=== PATIENT | female | born 1940 | race Caucasian/White ===

== ENCOUNTER 2024-08-02 10:54 | Inpatient (IN) ==
--- NOTE | 2024-08-02 11:15 | Emergency Department Note ---
History of Present Illness General Chief Complaint: Tachycardia Stated Complaint: SOB, TACHYCARDIA/116 BPM Time Seen by Provider: 08/02/24 11:04 History of Present Illness Provider Complaint: chest pain Onset (ago): week(s) Onset (Weeks): 1 Duration: intermittent Onset: during rest Pain Location: substernal Pain Radiation: none Severity: moderate Maximum Pain Intensity: 7 Current Pain Intensity: 7 Quality: + tightness Relieved By: + nothing Exacerbated By: + nothing Context: + recent travel and + history of DVT/PE; no recent illness, no recent surgery or no trauma/injury Associated symptoms: + dyspnea and + palpitations; no nausea, no fever, no cough or no leg swelling Past Med/Surg History Problem List (Updated 08/02/24 @ 13:33 by Sal Velazco MD) Acute heart failure Atrial fibrillation with RVR Medical History No pertinent family history HTN (hypertension) Surgical History No pertinent past surgical history Social History Smoking Status: Never smoker Preferred Language: Albanian Feels Safe at Home: Yes Physical Exam Vital Signs Vital Signs - 24 hr 08/02/24 10:59 08/02/24 11:16 08/02/24 11:16 Temperature 36.6 C Temperature Source Temporal Artery Scan Pulse Rate 97 H Pulse Rate [Apical] 100 H Respiratory Rate 17 20 Respiratory Effort / Characteristics Non-Labored Spontaneous Respiratory Depth Normal Blood Pressure 114/77 Blood Pressure [Left Arm] 101/84 Blood Pressure Mean 89 Blood Pressure Mean [Left Arm] 89 Blood Pressure Position Sitting Pulse Oximetry 97 94 93 Oxygen Delivery Method Room Air Room Air Room Air Sepsis Recent Fever Within 48 Hours No Sepsis New/Unexplained Change in Mental Status No Sepsis Action Taken by Nursing No Action Required 08/02/24 11:16 08/02/24 12:25 Temperature Temperature Source Pulse Rate 112 H 97 H Pulse Rate [Apical] Respiratory Rate 19 Respiratory Effort / Characteristics Respiratory Depth Blood Pressure Blood Pressure [Left Arm] Blood Pressure Mean Blood Pressure Mean [Left Arm] Blood Pressure Position Pulse Oximetry 95 Oxygen Delivery Method Room Air Sepsis Recent Fever Within 48 Hours Sepsis New/Unexplained Change in Mental Status Sepsis Action Taken by Nursing Physical Exam GENERAL: oriented to person, place, and time. appears well-developed and well- nourished. HENT: Exam performed. - Head: Normocephalic and atraumatic. EYES: Conjunctivae and EOM are normal. Right eye exhibits no discharge. Left eye exhibits no discharge. No scleral icterus. NECK: Normal range of motion. Neck supple. No JVD present. CV: Tachycardic rate, irregular rhythm, normal heart sounds and intact distal pulses. There is no peripheral edema. Palpable radial pulses bue. PULM/CHEST: Effort normal and breath sounds normal. No respiratory distress. No stridor. no wheezes. no rales. ABD: The abdomen is soft. There is no tenderness. NEURO: Motor and sensation grossly intact. SKIN: Skin is warm and dry. He is not diaphoretic. PSYCH: normal mood and affect. Behavior is normal. Judgment and thought content normal. Course Course 1104: The patient was evaluated in room B10. A complete history and physical exam was performed Cardiac monitoring: An order was placed for continuous cardiac monitoring. The monitor shows a rate of 120-140 with atrial fibrilation rhythm interpreted by me Patient has no history of atrial fibrillation. Patient's blood pressure is in the low systolic 100s. Patient be started on Cardizem drip. 1335: Vital signs stable on Cardizem drip. Patient reports her chest pain and palpitations have improved with Cardizem drip. Labs are unremarkable. Imaging shows fluid overloaded. Patient treated with Lasix and will put on heparin drip as well. [facility] is aware and evaluate the patient for mission. Administered Medications Diltiazem HCl 125 mg/ Dextrose 125 mls @ 5 mls/hr IV .Q24H YOANNA; Protocol Stop: 09/01/24 11:14 Last Admin: 08/02/24 11:26 Dose: 5 mg/hr, 5 mls/hr Documented By: AVM Co-signed By: LAM Heparin Sodium/Dextrose (Heparin Sodium/Dextrose) 25,000 units in 500 mls @ 13 mls/hr IV .Q24H YOANNA; Protocol Stop: 09/01/24 13:29 Last Admin: 08/02/24 13:26 Dose: 650 units/hr, 13 mls/hr Documented By: AVM Co-signed By: PARRIS Discontinued Medications Aspirin (Aspirin Chew 324 Mg) 324 mg PO NOW STA Stop: 08/02/24 11:06 Last Admin: 08/02/24 11:18 Dose: 324 mg Documented By: SARAH Furosemide (Furosemide 40 Mg/4 Ml Vial) 40 mg IV ONE ONE Stop: 08/02/24 13:09 Last Admin: 08/02/24 13:28 Dose: 40 mg Documented By: SARAH Heparin Sodium (Porcine) (Heparin Sod (Porcine) 1000 Unit/Ml) 1 units IV NOW ONE Stop: 08/02/24 13:25 Last Admin: 08/02/24 13:26 Dose: 3,000 units Documented By: SARAH Co-signed By: PARRIS Heparin Sodium (Porcine) (Heparin Sod (Porcine) 1000 Unit/Ml) 3,000 units IV NOW ONE Stop: 08/02/24 13:31 Last Admin: 08/02/24 13:32 Dose: Not Given Documented By: SARAH Heparin Sodium/Dextrose (Heparin Iv Adult Wt-Based Low-Dose W/ Initial Bolus Protocol) 1 each IV NOW STA; Protocol Stop: 08/02/24 13:09 Last Admin: 08/02/24 13:26 Dose: Not Given Documented By: SARAH Ioversol (Optiray 320 125ml) 112 ml IV ONCE ONE Stop: 08/02/24 11:41 Last Admin: 08/02/24 11:41 Dose: 112 ml Documented By: MIKALA Miscellaneous (Stat Iv Infusion Titration Per Protocol) 1 each N/A NOW STA Stop: 08/02/24 11:14 Last Admin: 08/02/24 11:33 Dose: Not Given Documented By: SARAH Medical Decision Making Laboratory Data Attestation: I reviewed the patient's lab results. 08/02/24 11:26 08/02/24 11:26 Labs: Lab Results 08/02/24 Range/Units 11:26 WBC 7.84 (4.8-10.8) K/ul RBC 3.96 L (4.20-5.40) M/uL Hgb 12.3 (12.0-16.0) g/dl Hct 36.8 L (37.0-47.0) % MCV 92.9 (80.0-100.0) fL MCH 31.1 (25.0-34.0) pg MCHC 33.4 (32.0-36.0) g/dL RDW Std Deviation 43.6 (36.4-46.3) fL RDW Coeff of Jennifer 12.8 (11.5-14.5) % Plt Count 154 (130-400) K/uL MPV 12.5 H (9.4-12.4) fL Immature Gran % (Auto) 0.4 % Neut % (Auto) 67.9 % Lymph % (Auto) 22.6 % Evangeline % (Auto) 8.4 % Eos % (Auto) 0.3 % Baso % (Auto) 0.4 % Neut # (Auto) 5.33 (1.40-6.50) K/uL Lymph # (Auto) 1.77 (1.20-3.40) K/uL Evangeline # (Auto) 0.66 H (0.11-0.59) K/uL Eos # (Auto) 0.02 (0.00-0.50) K/uL Baso # (Auto) 0.03 (0.00-0.20) K/uL Immature Gran # (Auto) 0.03 (0.01-0.20) K/uL PT 10.7 (9.0-12.0) Seconds INR 1.0 (0.9-1.1) APTT 24 (21-31) Seconds PTT Ratio 0.9 Sodium 138 (136-145) mmol/L Potassium 4.7 (3.5-5.1) mmol/L Chloride 106 (98-107) mmol/L Carbon Dioxide 25 (21-32) mmol/L Anion Gap 7 (3-11) BUN 34 H (6-23) mg/dl Creatinine 1.20 (0.6-1.2) mg/dl Est Cr Clr Drug Dosing 28.4 ml/min eGFR 44.36 BUN/Creatinine Ratio 28.3 H (10-20) Glucose 204 H (70-99(Fasting)) mg/dl Calcium 9.5 (8.6-10.3) mg/dl Troponin I High Sens 5.5 (0-14) pg/ml Lipase 81 (11-82) U/L Imaging Data Chest x-ray: Attestation: I personally reviewed and interpreted this imaging study as follows: My impression: Chest x-ray negative. Airway clear. No pneumothorax. No consolidation. No cardiomegaly or cephalization.. No free air under the diaphragm. No fractures of the skeletal structures. Radiologist's impression: XR chest 1V portable CLINICAL HISTORY: Chest pain, nonspecific COMPARISON STUDY: No previous studies for comparison. FINDINGS: Left shoulder arthroplasty is partially imaged. There is no pneumothorax. Small bilateral pleural effusions are present. The heart is mildly enlarged. Interstitial thickening is noted. There is no consolidation to suggest pneumonia. IMPRESSION: Cardiomegaly with interstitial pulmonary edema and small bilateral pleural effusions. ACT 112: Negative or not required by law. Electronically signed by: Donovan Stafford M.D. 08/02/2024 12:10 PM Dictated: 08/02/24 120 Transcribed: 08/02/241208 CT scan - chest: Radiologist's impression: CT ANGIOGRAM OF THE CHEST CLINICAL HISTORY: Atypical chest pain. COMPARISON STUDY: Chest x-ray dated 08/02/2024. TECHNIQUE: Following the IV administration of 112 cc of Optiray 320, CT angiogram of the chest was performed from the upper abdomen to the thoracic inlet utilizing the pulmonary embolus protocol. Images are reviewed in the axial, sagittal, and coronal planes. 3-D MIPS images are created and assessed. IV contrast was administered without complication. A dose lowering technique was utilized adhering to the principles of ALARA. There is streak artifact from a left shoulder arthroplasty. CT DOSE: 547.93 mGy.cm FINDINGS: Thyroid: Imaged portions of the thyroid gland are normal in size and attenuation. Thoracic aorta: There is moderate atherosclerotic calcification of the thoracic aorta, which is normal in caliber and demonstrates variant 3-vessel arch anatomy. There is a bovine arch, and the left vertebral artery arises directly from the thoracic aorta. The thoracic aorta is not well opacified. Pulmonary vasculature: The pulmonary trunk is normal in caliber. There are no filling defects identified in main, lobar, or segmental pulmonary branches to suggest pulmonary embolus. Heart: The heart is enlarged and without pericardial effusion. The coronary arteries and mitral annulus are densely calcified. Lungs and pleural spaces: Evaluation of the lung parenchyma is moderately degraded by motion artifact. Diffuse intralobular septal thickening indicates fluid overload/congestive change. There are small pleural effusions with dependent atelectasis. The trachea and central airways are clear. Diffuse peribronchial thickening is observed. A large calcified granuloma is seen at the right lung base. A 4 mm nodule in the left upper lobe as seen on September 12, 2017. Mediastinum: There are mildly enlarged distal lymph nodes. A pretracheal node on image #143 measures 10 mm short axis. Prevascular nodes measure up to 8 mm in short axis. Sunitha: Mildly enlarged hilar nodes measure up to 11 mm short axis. Axillae: There is no axillary lymphadenopathy. Upper abdomen: Partially visualized upper abdominal viscera is within normal limits. Skeletal structures: The skeletal structures are osteopenic. Degenerative change and hyperkyphosis is noted in the thoracic spine. There is a large hemangioma in the body of T10. No lytic or blastic bony lesions are seen. A left shoulder arthroplasty is in place. Arthritic change is noted in the right shoulder. IMPRESSION: 1. There is no evidence of pulmonary embolus in the main, lobar, or segmental pulmonary arteries. 2. Cardiomegaly with evidence of congestive failure. 3. There are small pleural effusions. 4. Mildly enlarged mediastinal and hilar lymph nodes are nonspecific and likely reactive. 5. Additional findings as above. ACT 112: Negative or not required by law. Electronically signed by: Varun Roman M.D. 08/02/2024 12:50 PM ECG Data Attestation: I personally reviewed and interpreted this ECG as follows: Rate (beats per minute): 110 Rhythm: atrial fibrillation Findings: no ST depression, no ST elevation or no prolonged QT Additional Comments: QRS 72 MDM Narrative 1104: The patient was evaluated in room B10. A complete history and physical exam was performed Cardiac monitoring: An order was placed for continuous cardiac monitoring. The monitor shows a rate of 120-140 with atrial fibrilation rhythm interpreted by me Patient has no history of atrial fibrillation. Patient's blood pressure is in the low systolic 100s. Patient be started on Cardizem drip. 1335: Vital signs stable on Cardizem drip. Patient reports her chest pain and palpitations have improved with Cardizem drip. Labs are unremarkable. Imaging shows fluid overloaded. Patient treated with Lasix and will put on heparin drip as well. [facility] Vel[facility]co is aware and evaluate the patient for mission. Impression & Plan Atrial fibrillation with RVR, Acute heart failure Critical Care Time Critical Care Time: Yes Total Critical Care Time: 58 I have personally spent greater than 58 minutes of critical care time in the direct management of this patient. This includes bedside care, interpretation of diagnostic studies, and testing, discussion with consultants, patient, and family members, and other required patient management activities. This 58 minutes is in excess of all separately billable procedures. Discharge Plan Visit Data Chief Complaint: Tachycardia Stated Complaint: SOB, TACHYCARDIA/116 BPM ED Provider: Aditya Stout Discharge Problem: Atrial fibrillation with RVR, Acute heart failure Patient Disposition: Admitted As Inpatient Forms Stand Alone Forms: My [facility] Referrals Referrals: PCP,NO [Primary Care Provider] -
[2024-08-02] MEDS: ASPIRIN CHEW 324 MG PO STA (11:18)
[2024-08-02] MEDS: dilTIAZem HCL 125 MG in DEXTROSE 5% 100 ML IV SCH (11:26)
[2024-08-02] MEDS: STAT IV Infusion **Titration per Protocol STA (11:33)
[2024-08-02] MEDS: OPTIRAY 320 125ml IV ONE (11:41)
[2024-08-02 11:55] LABS: Basophils # (auto) 0.03 K/uL (0.00-0.20); Basophils % (auto) 0.4 %; Eosinophils # (auto) 0.02 K/uL (0.00-0.50); Eosinophils % (auto) 0.3 %; Hematocrit (blood only) 36.8 % (37.0-47.0); Hemoglobin 12.3 g/dl (12.0-16.0); Immature Granulocytes # (auto) 0.03 K/uL (0.01-0.20); Immature Granulocytes % (auto) 0.4 %; Lymphocytes # (auto) 1.77 K/uL (1.20-3.40); Lymphocytes % (auto) 22.6 %; Mean Corpuscular Hemoglobin 31.1 pg (25.0-34.0); Mean Corpuscular Hgb Conc 33.4 g/dL (32.0-36.0); Mean Corpuscular Volume 92.9 fL (80.0-100.0); Mean Platelet Volume 12.5 fL (9.4-12.4); Monocytes # (auto) 0.66 K/uL (0.11-0.59); Monocytes % (auto) 8.4 %; Neutrophils # (auto) 5.33 K/uL (1.40-6.50); Neutrophils % (auto) 67.9 %; Platelet Count 154 K/uL (130-400); RDW Coefficient of Variation 12.8 % (11.5-14.5); RDW Standard Deviation 43.6 fL (36.4-46.3); Red Blood Count 3.96 M/uL (4.20-5.40); White Blood Count 7.84 K/ul (4.8-10.8)
[2024-08-02 12:06] LABS: BUN Creatinine Ratio 28.3 (10-20); Calcium 9.5 mg/dl (8.6-10.3); Creatinine Clr Calc Pharmacy 28.4 ml/min; Potassium 4.7 mmol/L (3.5-5.1)
[2024-08-02 12:11] LABS: Partial Thromboplastin Ratio 0.9; Partial Thromboplastin Time 24 Seconds (21-31); Prothrombin Time 10.7 Seconds (9.0-12.0)
--- NOTE | 2024-08-02 12:11 | XRay Report ---
XR chest 1V portable CLINICAL HISTORY: Chest pain, nonspecific COMPARISON STUDY: No previous studies for comparison. FINDINGS: Left shoulder arthroplasty is partially imaged. There is no pneumothorax. Small bilateral p leural effusions are present. The heart is mildly enlarged. Interstitial thickening is noted. There i s no consolidation to suggest pneumonia. IMPRESSION: Cardiomegaly with interstitial pulmonary edema and small bilateral pleural effusions. ACT 112: Negative or not required by law. Electronically signed by: Donovan Stafford M.D. 08/02/2024 12:10 PM
[2024-08-02 12:13] LABS: Troponin I High Sensitivity 5.5 pg/ml (0-14)
--- NOTE | 2024-08-02 12:53 | CT Scan Report ---
CT ANGIOGRAM OF THE CHEST CLINICAL HISTORY: Atypical chest pain. COMPARISON STUDY: Chest x-ray dated 08/02/2024. TECHNIQUE: Following the IV administration of 112 cc of Optiray 320, CT angiogram of the chest was pe rformed from the upper abdomen to the thoracic inlet utilizing the pulmonary embolus protocol. Images are reviewed in the axial, sagittal, and coronal planes. 3-D MIPS images are created and assessed. I V contrast was administered without complication. A dose lowering technique was utilized adhering to the principles of ALARA. There is streak artifact from a left shoulder arthroplasty. CT DOSE: 547.93 mGy.cm FINDINGS: Thyroid: Imaged portions of the thyroid gland are normal in size and attenuation. Thoracic aorta: There is moderate atherosclerotic calcification of the thoracic aorta, which is heron l in caliber and demonstrates variant 3-vessel arch anatomy. There is a bovine arch, and the left azar tebral artery arises directly from the thoracic aorta. The thoracic aorta is not well opacified. Pulmonary vasculature: The pulmonary trunk is normal in caliber. There are no filling defects identif ied in main, lobar, or segmental pulmonary branches to suggest pulmonary embolus. Heart: The heart is enlarged and without pericardial effusion. The coronary arteries and mitral annul us are densely calcified. Lungs and pleural spaces: Evaluation of the lung parenchyma is moderately degraded by motion artifact . Diffuse intralobular septal thickening indicates fluid overload/congestive change. There are small pleural effusions with dependent atelectasis. The trachea and central airways are clear. Diffuse caitlin bronchial thickening is observed. A large calcified granuloma is seen at the right lung base. A 4 mm nodule in the left upper lobe as seen on September 12, 2017. Mediastinum: There are mildly enlarged distal lymph nodes. A pretracheal node on image #143 measures 10 mm short axis. Prevascular nodes measure up to 8 mm in short axis. Sunitha: Mildly enlarged hilar nodes measure up to 11 mm short axis. Axillae: There is no axillary lymphadenopathy. Upper abdomen: Partially visualized upper abdominal viscera is within normal limits. Skeletal structures: The skeletal structures are osteopenic. Degenerative change and hyperkyphosis is noted in the thoracic spine. There is a large hemangioma in the body of T10. No lytic or blastic bon y lesions are seen. A left shoulder arthroplasty is in place. Arthritic change is noted in the right shoulder. IMPRESSION: 1. There is no evidence of pulmonary embolus in the main, lobar, or segmental pulmonary arteries. 2. Cardiomegaly with evidence of congestive failure. 3. There are small pleural effusions. 4. Mildly enlarged mediastinal and hilar lymph nodes are nonspecific and likely reactive. 5. Additional findings as above. ACT 112: Negative or not required by law. Electronically signed by: Varun Roman M.D. 08/02/2024 12:50 PM
[2024-08-02] MEDS: HEPARIN SODIUM/DEXTROSE 25,000 UNITS/500 ML BAG IV SCH (13:26)
[2024-08-02] MEDS: HEPARIN SOD (PORCINE) 1000 UNIT/ML IV ONE ×2 (13:26→13:32)
[2024-08-02] MEDS: Heparin IV Adult Wt-Based Low-Dose w/ INITIAL Bolus Protocol IV STA (13:26)
[2024-08-02] MEDS: FUROSEMIDE 40 MG/4 ML VIAL IV ONE (13:28)
--- NOTE | 2024-08-02 13:28 | History & Physical Report ---
Date of Service August 02, 2024 Assessment & Plan (1) Atrial fibrillation with RVR: Plan: New onset, no prior episodes [id number] - 5 (age/sex/CHF/HTN), no prior GI bleed, start on IV heparin in the ER which we will continue until echocardiogram assess for cardiomyopathy or wall motion abnormalities TSH added to prior labs Mg level added to prior labs Continue rate control with diltiazem 5mg/hr drip started in the ER, planning to increase her usual carvedilol to 25mg PO BID and wean off drip Unlikely carvedilol increase will control rate adequately therefore will likely add PO diltiazem vs. digoxin depending on echocardiogram and rates later today (2) Acute heart failure: Plan: Unknown ejection fraction Lasix 40mg IV given in the ER, monitor for response prior to further dosing Low Na, heart healthy diet Consider switch o metoprolol succinate on discharge Strict I&Os Daily weight (3) HTN (hypertension): Plan: Hold amlodipine and lisinopril to allow up titration of carvedilol and diuretics (4) T2DM (type 2 diabetes mellitus): Plan: Hemoglobin A1C with Am labs Hold metformin Novolog for correction only Plan VTE Prophylaxis - IV heparin Diet - Low Na, heart healthy Disposition - admit to PCU Admission and Anticipated Discharge Date Admission Date: August 02, 2024 History of Present Illness Chief Complaint: Shortness of breath Chest heaviness Primary Care Provider: NO PCP Tiki Jean is an 84 year old female who presents to the ER with 1 week of progressively worsening chest heaviness and shortness of breath. She has been moving house in the last week and moving heavy boxes so initially put her symptoms down to this. However today while taking her BP the cuff noted her heart rate was 116 therefore decided to come to the ER. She denies any palpations, presyncope, claudication, weight gain or leg swelling. Chest heaviness can last all day, relieved mostly at night, substernal, no radiation, no associated diaphoresis or nausea. She is current chest pain/heaviness free. Shortness of breath is associated with the chest heaviness. She denies any other respiratory symptoms such as sinus pain, nasal congestion or cough. No fever, chills, gastrointestinal or urinary symptoms. She has well controlled type 2 diabetes mellitus and hypertension. No prior cardiac history and is a non smoker. She took all her usual morning medications today. Allergies Allergy/AdvReac Type Severity Reaction Status Date / Time sulindac AdvReac Mild Gastrointestinal Verified 08/02/24 14:57 Upset Home Medications Medication Instructions Recorded Confirmed Type amlodipine 5 mg tablet 5 mg PO HS 08/02/24 08/02/24 History aspirin 81 mg tablet 81 mg PO DAILY 08/02/24 08/02/24 History atorvastatin 20 mg tablet 20 mg PO HS 08/02/24 08/02/24 History calcium 315 mg (as 2 tab PO DAILY 08/02/24 08/02/24 History citrate)-vitamin D3 5 mcg (200 unit) tablet (Calcium Citrate + D) carvedilol 12.5 mg tablet 18.75 mg PO BID 08/02/24 08/02/24 History cholecalciferol (vitamin D3) 25 25 mcg PO DAILY 08/02/24 08/02/24 History mcg (1,000 unit) tablet (Vitamin D3) gabapentin 100 mg capsule 100 mg PO BID 08/02/24 08/02/24 History gabapentin 300 mg capsule 300 mg PO HS 08/02/24 08/02/24 History lisinopril 10 mg tablet 10 mg PO QAM 08/02/24 08/02/24 History metformin 500 mg tablet,extended 500 mg PO QAM 08/02/24 08/02/24 History release 24 hr multivitamin 1 tab PO DAILY 08/02/24 08/02/24 History omega-3 fatty acids 2,000 mg PO DAILY 08/02/24 08/02/24 History vitamin B complex 1 tab PO DAILY 08/02/24 08/02/24 History Past Med/Surg History Problem List (Updated 08/02/24 @ 15:41 by Sal Velazco MD) Acute heart failure Atrial fibrillation with RVR Medical History History of pulmonary embolism 2013 History of pancreatitis Gallstone 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, Back December 2017 T2DM (type 2 diabetes mellitus) Peripheral neuropathy No pertinent family history HTN (hypertension) Surgical History History of total right knee replacement 2018 History of total hip arthroplasty For osteoarthritis 2015 History of carpal tunnel surgery 2016 History of reverse total replacement of left shoulder joint 2014 History of cataract surgery Bilateral (2007, 2010) History of section 1971, 1974 History of appendectomy 1960 History of tonsillectomy 1947 History of cholecystectomy 2015 Social History Smoking Status: Never smoker Preferred Language: Belarusian Feels Safe at Home: Yes Review of Systems Review of Systems: All systems reviewed & are unremarkable except as noted in HPI & below Physical Exam Constitutional: WD/WN, vitals as above Eyes: + anicteric sclerae; normal pupil size ENMT: external ear and nose normal, oropharynx normal Respiratory: normal respiratory effort, lungs clear to auscultation Cardiovascular: Rate/Rhythm: + tachycardic and + irregularly irregular Heart Sounds: no murmur Vessels: no JVD Extremities: normal capillary refill and + pedal edema (1+ b/l equal); no calf tenderness Gastrointestinal (Abdomen): normal bowel sounds, soft, nontender, no hepatosplenomegaly Musculoskeletal: no cyanosis or clubbing, extremities motor strength 5/5 Skin: no rashes, warm and dry Neurologic: moves all extremities and awake; not confused Psychiatric: A+Ox3, euthymic affect Genitourinary: no CVA tenderness Results & Data Results & Data Vital Signs (Past 12 Hours) Vital Signs Temp Pulse Pulse Resp BP BP Pulse Ox 08/02/24 12:25 97 H 08/02/24 11:16 112 H 19 95 08/02/24 11:16 100 H 20 101/84 93 08/02/24 11:16 94 08/02/24 10:59 36.6 C 97 H 17 114/77 97 O2 Del Method 08/02/24 12:25 08/02/24 11:16 Room Air 08/02/24 11:16 Room Air 08/02/24 11:16 Room Air 08/02/24 10:59 Room Air Laboratory Results Abnormal lab results 08/02/24 Range/Units 11:26 RBC 3.96 L (4.20-5.40) M/uL Hct 36.8 L (37.0-47.0) % MPV 12.5 H (9.4-12.4) fL [place] # (Auto) 0.66 H (0.11-0.59) K/uL BUN 34 H (6-23) mg/dl BUN/Creatinine Ratio 28.3 H (10-20) Glucose 204 H (70-99(Fasting)) mg/dl Diagnostic Findings XR chest 1V portable CLINICAL HISTORY: Chest pain, nonspecific COMPARISON STUDY: No previous studies for comparison. FINDINGS: Left shoulder arthroplasty is partially imaged. There is no pneumothorax. Small bilateral pleural effusions are present. The heart is mildly enlarged. Interstitial thickening is noted. There is no consolidation to suggest pneumonia. IMPRESSION: Cardiomegaly with interstitial pulmonary edema and small bilateral pleural effusions. CT ANGIOGRAM OF THE CHEST CLINICAL HISTORY: Atypical chest pain. COMPARISON STUDY: Chest x-ray dated 08/02/2024. TECHNIQUE: Following the IV administration of 112 cc of Optiray 320, CT angiogram of the chest was performed from the upper abdomen to the thoracic inlet utilizing the pulmonary embolus protocol. Images are reviewed in the axial, sagittal, and coronal planes. 3-D MIPS images are created and assessed. IV contrast was administered without complication. A dose lowering technique was utilized adhering to the principles of ALARA. There is streak artifact from a left shoulder arthroplasty. CT DOSE: 547.93 mGy.cm FINDINGS: Thyroid: Imaged portions of the thyroid gland are normal in size and attenuation. Thoracic aorta: There is moderate atherosclerotic calcification of the thoracic aorta, which is normal in caliber and demonstrates variant 3-vessel arch anatomy. There is a bovine arch, and the left vertebral artery arises directly from the thoracic aorta. The thoracic aorta is not well opacified. Pulmonary vasculature: The pulmonary trunk is normal in caliber. There are no filling defects identified in main, lobar, or segmental pulmonary branches to suggest pulmonary embolus. Heart: The heart is enlarged and without pericardial effusion. The coronary arteries and mitral annulus are densely calcified. Lungs and pleural spaces: Evaluation of the lung parenchyma is moderately degraded by motion artifact. Diffuse intralobular septal thickening indicates fluid overload/congestive change. There are small pleural effusions with dependent atelectasis. The trachea and central airways are clear. Diffuse peribronchial thickening is observed. A large calcified granuloma is seen at the right lung base. A 4 mm nodule in the left upper lobe as seen on September 12, 2017. Mediastinum: There are mildly enlarged distal lymph nodes. A pretracheal node on image #143 measures 10 mm short axis. Prevascular nodes measure up to 8 mm in short axis. Sunitha: Mildly enlarged hilar nodes measure up to 11 mm short axis. Axillae: There is no axillary lymphadenopathy. Upper abdomen: Partially visualized upper abdominal viscera is within normal limits. Skeletal structures: The skeletal structures are osteopenic. Degenerative change and hyperkyphosis is noted in the thoracic spine. There is a large hemangioma in the body of T10. No lytic or blastic bony lesions are seen. A left shoulder arthroplasty is in place. Arthritic change is noted in the right shoulder. IMPRESSION: 1. There is no evidence of pulmonary embolus in the main, lobar, or segmental pulmonary arteries. 2. Cardiomegaly with evidence of congestive failure. 3. There are small pleural effusions. 4. Mildly enlarged mediastinal and hilar lymph nodes are nonspecific and likely reactive. 5. Additional findings as above. Medications Administered ER Medications Given: Heparin low dose with bolus Diltiazem 5mg/hr IV drip Aspirin 324mg PO Furosemide 40mg IV ECG Rate (beats per minute): 110 Rhythm: atrial fibrillation Findings: no acute ischemic change Comparison ECG Date: no prior available Code Status & VTE Plan Code Status DNR/DNI per patient wishes VTE Prophylaxis Plan VTE Prophylaxis will be ordered: Yes PG Care Time/CCT Total # of Minutes Spent Total Time Spent with Patient: Total time spent is greater than 50% in coordination of care (as documented) at patient's floor/unit and/or counseling patient: Coding Level of Care Code 15124 INT INP/OBS CARE 3/75MIN Diagnoses Atrial fibrillation with RVR I48.91 Acute heart failure, unspecified heart failure type I50.9 Heart failure type: unspecified Primary hypertension I10 Hypertension type: primary hypertension Type 2 diabetes mellitus with diabetic neuropathy, without long-term current use of insulin E11.40 Diabetes mellitus alf insulin use: without terminal carman use Diabetes mellitus complication status: with neurologic complications Diabetes mellitus complication detail: with unspecified neuropathy (2) Acute heart failure Heart failure type: unspecified Qualified Code(s): I50.9 - Heart failure, uns pecified (3) HTN (hypertension) Hypertension type: primary hypertension Qualified Code(s): I10 - Essential (primary) hypertension (4) T2DM (type 2 diabetes mellitus) Diabetes mellitus alf insulin use: without alf use Diabetes mellitus complication status: with neurologic complications Diabetes mellitus complication detail: with unspecified neuropathy Qualified Code(s): E11.40 - Type 2 diabetes mellitus with diabetic neuropathy, unspecified
[2024-08-02 14:00] LABS: Magnesium 1.9 mg/dl (1.7-2.4)
[2024-08-02 14:15] LABS: Thyroid Stimulating Hormone 3.564 uIu/ml (0.300-4.500)
[2024-08-02] MEDS ORDERED: GLUCAGON FOR INJ 1 MG VIAL SQ PRN (16:08)
[2024-08-02] MEDS ORDERED: GLUCOSE 40% GEL 15 GM TUBE PO PRN (16:08)
[2024-08-02] MEDS ORDERED: DEXTROSE 50% 50 ML SYRINGE IV PRN (16:08)
[2024-08-02] MEDS ORDERED: GLUCOSE 10 TAB/TUBE PO PRN (16:08)
[2024-08-02] MEDS ORDERED: CARBOHYDRATES FOR HYPOGLYCEMIA PO PRN (16:08)
[2024-08-02] MEDS ORDERED: ACETAMINOPHEN 325 MG TAB PO PRN (16:08)
[2024-08-02] MEDS: MAGNESIUM SULFATE / D5W 1 GM/100 ML BAG IV ONE (17:29)
[2024-08-02] MEDS: INSULIN ASPART PER UNIT CHARGE SC SCH (18:26)
--- NOTE | 2024-08-02 18:52 | XCELERA ---
[id number]
[2024-08-02] MEDS: ATORVASTATIN 20 MG TAB PO SCH (20:57)
[2024-08-02] MEDS: GABAPENTIN 300 MG CAP PO SCH (20:57)
[2024-08-02] MEDS: carvediloL 25 MG TAB PO SCH (20:57)
[2024-08-03 04:29] VITALS: O2SAT 93
[2024-08-03 06:47] LABS: Basophils # (auto) 0.01 K/uL (0.00-0.20); Basophils % (auto) 0.2 %; Eosinophils # (auto) 0.06 K/uL (0.00-0.50); Eosinophils % (auto) 0.9 %; Hematocrit (blood only) 38.7 % (37.0-47.0); Hemoglobin 12.8 g/dl (12.0-16.0); Immature Granulocytes # (auto) 0.14 K/uL (0.01-0.20); Immature Granulocytes % (auto) 2.1 %; Lymphocytes % (auto) 15.3 %; Mean Corpuscular Hemoglobin 30.5 pg (25.0-34.0); Mean Corpuscular Hgb Conc 33.1 g/dL (32.0-36.0); Mean Corpuscular Volume 92.1 fL (80.0-100.0); Mean Platelet Volume 12.5 fL (9.4-12.4); Monocytes # (auto) 0.26 K/uL (0.11-0.59); Neutrophils # (auto) 5.06 K/uL (1.40-6.50); Neutrophils % (auto) 77.5 %; Platelet Count 175 K/uL (130-400); RDW Coefficient of Variation 12.9 % (11.5-14.5); RDW Standard Deviation 42.5 fL (36.4-46.3); White Blood Count 6.53 K/ul (4.8-10.8)
[2024-08-03 07:09] LABS: BUN Creatinine Ratio 20.8 (10-20); Calcium 8.9 mg/dl (8.6-10.3); Creatinine Clr Calc Pharmacy 20.7 ml/min; Potassium 4.1 mmol/L (3.5-5.1)
[2024-08-03 07:12] LABS: ANTI-Xa, UFH(UnfractionatedHep 0.26 IU/ml (0.3-0.7)
[2024-08-03 07:45] LABS: Estimated Average Glucose 151 mg/dl; Hemoglobin A1C 6.9 % (4.5-5.6)
[2024-08-03] MEDS: GABAPENTIN 100 MG CAP PO SCH (08:09)
[2024-08-03 12:40] LABS: ANTI-Xa, UFH(UnfractionatedHep 0.26 IU/ml (0.3-0.7)
--- NOTE | 2024-08-03 13:24 | Cardiology Consultation ---
Date of Consultation August 03, 2024 Assessment & Plan (1) Paroxysmal atrial fibrillation: (2) Aortic stenosis: (3) Mitral regurgitation: (4) Chest pain: (5) HTN (hypertension): Plan ASSESSMENT/PLAN: 1. Paroxysmal atrial fibrillation: Symptomatic. Chest discomfort seem to correlate with A-fib with RVR and improved with rate controlling medications in the ER. Continues to be chest pain-free when evaluated earlier this afternoon. We discussed the diagnosis in detail. Also discussed treatment strategies such as rate control, rhythm control, or ablation. Given first event, reasonable to continue with rate control strategy but if it returns soon, would consider a ntiarrhythmic therapy. Can replace her home dose of amlodipine with diltiazem CD1 120 mg daily. Can continue carvedilol 25 mg twice daily. Recommend anticoagulation for stroke risk reduction in the form of Eliquis. Monitor renal function and CBC. 2. Aortic stenosis/regurgitation: Mild. We discussed echo findings. Can monitor in the outpatient setting. 3. Mitral regurgitation: Moderate. Can monitor in the outpatient setting with surveillance echo. 4. Chest pain: Seems to correlate with her atrial fibrillation. Repeat troponin was ordered. Given that it was constant without resolution for several days, with normal high-sensitivity troponin x 2, chest pain is not consistent with ischemic heart disease. 5. Hypertension: History of hypertension but mildly hypotensive when seen earlier this afternoon. After discussion with Dr. Long, plan was to hold lisinopril for now and in the setting of renal insufficiency, while continuing carvedilol and replacing amlodipine with diltiazem. 6. Elevated BNP: She does not appear hypervolemic and with a dose of intravenous diuretic, labs suggest azotemia. She does not require further diuretic. Based on today's findings, would not diagnosed with heart failure. 7. Disposition: Follow-up in the outpatient setting in the next 1 to 2 weeks. Patient care discussed with Dr. Long of the primary hospitalist service. Thank you for allowing me to participate in the care of your patient. Please call for any other questions or concerns. Sincerely, Cricket Hood M.D. History of Present Illness Reason for Consultation: "New onset rapid A-fib" Requesting Physician: Gaby Long MD Attending Physician: Gaby Long MD History of Present Illness Mrs. Jean is a very pleasant 84-year-old female with a history significant for hypertension, type 2 diabetes, peripheral neuropathy, and bilateral lower extremity DVT with PE in 2013 after a long car ride. She was admitted on 08/02/2024 due to chest discomfort and was found to be in A- fib with RVR. She had just moved to the area recently and has been unpacking in her new home. For the past week, she has had substernal chest discomfort described as a constant pain that improved while in bed but never resolved. Chest discomfort was worse with exertion and resolved in the ER after she was treated with rate controlling medications for atrial fibrillation and rapid ventricular response. She checked her heart rate at home on 08/02/2024 and noted that her heart rate was 116 bpm but she admits that she does not typically monitor her heart rate or blood pressure. She has had edema in the past and was on Lasix for a few years but her PCP discontinued Lasix approximately 6 months ago and she has not had any further edema. She denies syncope, near syncope, palpitations, shortness of breath, melena, hematochezia, or hematuria. She denies a history of TIA or stroke, vascular disease, or heart failure. Review of systems: As above. Family history: Father had CHF. Sister with CHF. Social history: She denies tobacco, alcohol, or drug abuse. She is and lives with her , Gregg. They moved to the [facility] from [place] in 2023 to be closer to their son, Fransico. She has 2 sons and 7 grandchildren. Her other son lives in [place]. She was accompanied today by her (Gregg) and her son, Fransico. Allergies Allergy/AdvReac Type Severity Reaction Status Date / Time sulindac AdvReac Mild Gastrointestinal Verified 08/02/24 14:57 Upset Home Medications Medication Instructions Recorded Confirmed Type aspirin 81 mg tablet 81 mg PO DAILY 08/02/24 08/02/24 History atorvastatin 20 mg tablet 20 mg PO HS 08/02/24 08/02/24 History calcium 315 mg (as 2 tab PO DAILY 08/02/24 08/02/24 History citrate)-vitamin D3 5 mcg (200 unit) tablet (Calcium Citrate + D) carvedilol 12.5 mg tablet 18.75 mg PO BID 08/02/24 08/02/24 History cholecalciferol (vitamin D3) 25 25 mcg PO DAILY 08/02/24 08/02/24 History mcg (1,000 unit) tablet (Vitamin D3) gabapentin 100 mg capsule 100 mg PO BID 08/02/24 08/02/24 History gabapentin 300 mg capsule 300 mg PO HS 08/02/24 08/02/24 History lisinopril 10 mg tablet 10 mg PO QAM 08/02/24 08/02/24 History metformin 500 mg tablet,extended 500 mg PO QAM 08/02/24 08/02/24 History release 24 hr multivitamin 1 tab PO DAILY 08/02/24 08/02/24 History omega-3 fatty acids 2,000 mg PO DAILY 08/02/24 08/02/24 History vitamin B complex 1 tab PO DAILY 08/02/24 08/02/24 History apixaban 2.5 mg tablet (Eliquis) 2.5 mg PO BID #60 tabs 08/03/24 Rx diltiazem HCl 120 mg 120 mg PO QAM #30 caps 08/03/24 Rx capsule,extended release 24 hr Problem List (Updated 08/03/24 @ 21:25 by Rivera Hood MD) Chest pain Mitral regurgitation Aortic stenosis Paroxysmal atrial fibrillation Atrial fibrillation with RVR Patient History Medical History History of pulmonary embolism 2014 History of pancreatitis Gallstone 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, Back December 2017 T2DM (type 2 diabetes mellitus) Peripheral neuropathy No pertinent family history HTN (hypertension) Surgical History History of total right knee replacement 2018 History of total hip arthroplasty For osteoarthritis 2015 History of carpal tunnel surgery 2016 History of reverse total replacement of left shoulder joint 2014 History of cataract surgery Bilateral (2007, 2010) History of section 1971, 1974 History of appendectomy 1960 History of tonsillectomy 1947 History of cholecystectomy 2015 Social History Smoking Status: Never smoker Do You Dip or Chew Tobacco: No; Hx Alcohol Use: No Hx Substance Use: No Preferred Language: Armenian Communication Ability: Effective 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 Alert. HEENT: Anicteric sclera. Neck: No JVD. Bilateral bruits vs radiation of cardiac murmur. Normal carotid upstrokes bilaterally. Cardiac: Regular. Normal S1-S2. 1/6 early peaking systolic ejection murmur heard best at right upper sternal border. No rubs or gallops. Pulmonary: Clear to auscultation bilaterally without wheezes, rales, or rhonchi. Abdomen: Soft, nontender, nondistended, with normoactive bowel sounds. No bruits noted. Extremities: 2+ radial pulses bilaterally. 2+ posterior tibialis pulses bilaterally. No edema or cyanosis. Psychiatric: Affect appears appropriate. Results & Data Vital Signs (Past 12 Hours) Vital Signs Temp Pulse Pulse Resp BP Pulse Ox O2 Del Method 08/03/24 11:00 36.8 C 67 16 96/53 L 08/03/24 08:00 74 08/03/24 07:30 37.0 C 55 L 18 103/49 L 08/03/24 03:33 37.4 C 73 18 101/63 93 Room Air Laboratory Results Laboratory Results - last 24 hr 08/02/24 08/02/24 08/02/24 11:26 18:01 19:04 WBC RBC Hgb Hct MCV MCH MCHC RDW Std Deviation RDW Coeff of Jennifer Plt Count MPV Immature Gran % (Auto) Neut % (Auto) Lymph % (Auto) Bledso[place] % (Auto) Eos % (Auto) Baso % (Auto) Neut # (Auto) Lymph # (Auto) [place] # (Auto) Eos # (Auto) Baso # (Auto) Immature Gran # (Auto) Heparin Anti-Xa, Unfract 0.40 Sodium Potassium Chloride Carbon Dioxide Anion Gap BUN Creatinine Est Cr Clr Drug Dosing eGFR BUN/Creatinine Ratio Glucose POC Glucose 160 H Estimat Average Glucose Hemoglobin A1c Calcium Magnesium 1.9 Troponin I High Sens B-Natriuretic Peptide TSH 3.564 08/02/24 08/03/24 08/03/24 20:14 06:25 07:29 WBC 6.53 RBC 4.20 Hgb 12.8 Hct 38.7 MCV 92.1 MCH 30.5 MCHC 33.1 RDW Std Deviation 42.5 RDW Coeff of Jennifer 12.9 Plt Count 175 MPV 12.5 H Immature Gran % (Auto) 2.1 Neut % (Auto) 77.5 Lymph % (Auto) 15.3 Bledsoe % (Auto) 4.0 Eos % (Auto) 0.9 Baso % (Auto) 0.2 Neut # (Auto) 5.06 Lymph # (Auto) 1.00 L Bledso[place] # (Auto) 0.26 Eos # (Auto) 0.06 Baso # (Auto) 0.01 Immature Gran # (Auto) 0.14 Heparin Anti-Xa, Unfract 0.26 L Sodium 138 Potassium 4.1 Chloride 103 Carbon Dioxide 26 Anion Gap 9 BUN 33 H Creatinine 1.59 H D Est Cr Clr Drug Dosing 20.7 eGFR 31.65 BUN/Creatinine Ratio 20.8 H Glucose 156 H POC Glucose 151 H 159 H Estimat Average Glucose 151 Hemoglobin A1c 6.9 H Calcium 8.9 Magnesium 2.0 Troponin I High Sens B-Natriuretic Peptide TSH 08/03/24 08/03/24 11:32 11:49 WBC RBC Hgb Hct MCV MCH MCHC RDW Std Deviation RDW Coeff of Jennifer Plt Count MPV Immature Gran % (Auto) Neut % (Auto) Lymph % (Auto) Bledso[place] % (Auto) Eos % (Auto) Baso % (Auto) Neut # (Auto) Lymph # (Auto) [place]led[place] # (Auto) Eos # (Auto) Baso # (Auto) Immature Gran # (Auto) Heparin Anti-Xa, Unfract 0.26 L Sodium Potassium Chloride Carbon Dioxide Anion Gap BUN Creatinine Est Cr Clr Drug Dosing eGFR BUN/Creatinine Ratio Glucose POC Glucose 206 H Estimat Average Glucose Hemoglobin A1c Calcium Magnesium Troponin I High Sens 5.4 B-Natriuretic Peptide 265 H TSH Diagnostic Findings Telemetry personally reviewed: Sinus rhythm when evaluated earlier this afternoon. Had A-fib with RVR which converted to sinus rhythm at 1:29 AM on 08/03/2024. CTA chest 08/02/2024: No PE. Cardiomegaly. Small pleural effusions. History and physical report reviewed. Labs reviewed and notable for normal high-sensitivity troponin x 2, mildly elevated BNP, worsened renal function following IV Lasix, normal magnesium, normal TSH, normal blood counts. ECGs personally reviewed: ECG 08/02/2024 at 11:07 AM: A-fib 110 bpm. PVC versus aberrantly conducted complex. Poor R wave progression. ECG 08/03/2024 at 12:33 PM: Sinus with PVCs 70 bpm. Poor R wave progression. Nonspecific T wave abnormality. Echo 08/02/2024: Normal LV size, wall motion, systolic function. EF 60-65%. Mild LVH. Severe left atrial dilation. Mild aortic stenosis with mild AI. Moderate MR. Moderate MAC. Top normal RVSP. Medications Administered Current Inpatient Medications Acetaminophen (Acetaminophen 325 Mg Tab) 650 mg PO Q4H PRN PRN Reason: Pain or Fever Stop: 09/01/24 16:07 Atorvastatin Calcium (Atorvastatin 20 Mg Tab) 20 mg PO HS YOANNA Stop: 09/01/24 20:59 Last Admin: 08/02/24 20:57 Dose: 20 mg Carvedilol (Carvedilol 25 Mg Tab) 25 mg PO BID YOANNA Stop: 09/01/24 20:59 Last Admin: 08/03/24 08:09 Dose: 25 mg Dextrose (Dextrose 50% 50 Ml Syringe) 25 - 50 ml IV UD PRN; Protocol PRN Reason: Hypoglycemia Protocol Stop: 09/01/24 16:07 Gabapentin (Gabapentin 300 Mg Cap) 300 mg PO HS YOANNA Stop: 09/01/24 20:59 Last Admin: 08/02/24 20:57 Dose: 300 mg Gabapentin (Gabapentin 100 Mg Cap) 100 mg PO BID YOANNA Stop: 09/02/24 20:59 Glucagon (Glucagon For Inj 1 Mg Vial) 1 mg SQ UD PRN; Protocol PRN Reason: Hypoglycemia Protocol Stop: 09/01/24 16:07 Glucose (Glucose 40% Gel 15 Gm Tube) 15 - 30 gm PO UD PRN; Protocol PRN Reason: Hypoglycemia Protocol Stop: 09/01/24 16:07 Glucose (Glucose 10 Tab/Tube) 4 - 8 tab PO UD PRN; Protocol PRN Reason: Hypoglycemia Protocol Stop: 09/01/24 16:07 Diltiazem HCl 125 mg/ Dextrose 125 mls @ 0 mls/hr IV .Q0M YOANNA; Protocol Stop: 09/01/24 11:14 Last Admin: 08/03/24 13:16 Dose: Not Given Heparin Sodium/Dextrose (Heparin Sodium/Dextrose) 25,000 units in 500 mls @ 14 mls/hr IV .Q24H YOANNA; Protocol Stop: 09/01/24 13:29 Last Titration: 08/03/24 08:18 Dose: 700 units/hr, 14 mls/hr Insulin Aspart (Insulin Aspart Per Unit Charge) 0 units SC ACHS YOANNA Stop: 09/01/24 16:29 Last Admin: 08/03/24 12:58 Dose: 2 units Miscellaneous (Carbohydrates For Hypoglycemia ) 15 - 30 gm PO UD PRN PRN Reason: Hypoglycemia Protocol Stop: 09/01/24 16:07 PG Care Time/CCT Total # of Minutes Spent Total Time Spent with Patient: Total time spent is greater than 50% in coordination of care (as documented) at patient's floor/unit and/or counseling patient: Coding Level of Care Code 45865 INT INP/OBS CARE 3/75MIN Diagnoses Paroxysmal atrial fibrillation I48.0 Aortic stenosis I35.0 Mitral regurgitation I34.0 Chest pain R07.9 Primary hypertension I10 Hypertension type: primary hypertension (5) HTN (hypertension) Hypertension type: primary hypertension Qualified Code(s): I10 - Essential (primary) hypertension
[2024-08-03 15:27] VITALS: BP 90/43; RESP 18; TEMP 98.4
[2024-08-03 15:35] LABS: ANTI-Xa, UFH(UnfractionatedHep 0.27 IU/ml (0.3-0.7)
--- NOTE | 2024-08-03 17:08 | Discharge Summary ---
Discharge Summary Date of Service August 03, 2024 Principal Dx & Hospital Course #1 = Principal Diagnosis (1) Paroxysmal atrial fibrillation: Patient here with new onset rapid atrial fibrillation with rates in the 1 teens to 120s. She was placed on a diltiazem drip and heparin drip overnight and converted to normal sinus rhythm spontaneously. [id number] - 5 (age/sex/CHF/HTN)-switch to Eliquis 2.5 Mg p.o. twice daily on discharge due to age and creatinine greater than 1.5 Echocardiogram here with preserved EF 60-65%, mild aortic stenosis, mild aortic insufficiency, moderate MR, severe left atrial enlargement Check BMP in 1 week due to acute kidney injury, creatinine may come down less than 1.5 and her Eliquis dose can be increased to 5 Mg p.o. twice daily at that time Add on diltiazem 120 mg p.o. once daily for future rate control, and stop home amlodipine Hold/stop lisinopril due to JOSE as well as soft blood pressures Continue home carvedilol 18.75 Mg p.o. twice daily for rate control and blood pressure control Follow-up with cardiology as an outpatient Heart failure was ruled out-she had some perhaps mild pulmonary edema on admission was given IV Lasix but this actually caused her to become prerenal and have acute kidney injury-she did not have heart failure (2) HTN (hypertension): Blood pressure medication changes as noted above, her blood pressures have been soft after increasing dose of carvedilol and receiving diltiazem drip as well as IV Lasix Stopping lisinopril and amlodipine Adding diltiazem 120 mg daily for rate control, resuming home carvedilol dose 18.75 Mg p.o. 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 Discussed her care with cardiology on the day of discharge and with her at the bedside Notes For Next Care Provider Needs follow-up with cardiology Needs follow-up BMP in 1 week Medication Changes From Visit Added Eliquis 2.5 Mg p.o. twice daily-may be increased to 5 Mg p.o. twice daily if creatinine improves to less than 1.5 Stop lisinopril Stop amlodipine Added diltiazem 120 Mg p.o. once daily Admission HPI Per Admitting Provider Tiki Jean is an 84 year old female who presents to the ER with 1 week of progressively worsening chest heaviness and shortness of breath. She has been moving house in the last week and moving heavy boxes so initially put her symptoms down to this. However today while taking her BP the cuff noted her heart rate was 116 therefore decided to come to the ER. She denies any palpations, presyncope, claudication, weight gain or leg swelling. Chest heaviness can last all day, relieved mostly at night, substernal, no radiation, no associated diaphoresis or nausea. She is current chest pain/heaviness free. Shortness of breath is associated with the chest heaviness. She denies any other respiratory symptoms such as sinus pain, nasal congestion or cough. No fever, chills, gastrointestinal or urinary symptoms. She has well controlled type 2 diabetes mellitus and hypertension. No prior cardiac history and is a non smoker. She took all her usual morning medications today. Discharge Exam Constitutional WD/WN, vitals as above Respiratory normal respiratory effort, lungs clear to auscultation Cardiovascular RRR, no murmur, no edema Gastrointestinal (Abdomen) normal bowel sounds, soft, nontender, no hepatosplenomegaly Psychiatric A+Ox3, euthymic affect Discharge Plan Discharge Items Patient Disposition: Home - Self-Care Reason For Visit: A. FIB RVR, CHF Discharge Diagnosis: Rapid atrial fibrillation Activity: Resume your previous activity Non-emergency contact: Primary Care Provider and Pole Shaver Call non-emergency contact if: you have any medication questions and your symptoms worsen Follow-up/Referrals: Rivera Hood MD [Physician] - (Dr. Hood's office will contact you with your appointment date and time) Josselin Lugo CRNP [Nurse Practitioner] - 08/09/24 9:40 am (ADDRESS TO THIS APPOINTMENT IS [facility] [id number] [facility] [id number] - OFFICE NUMBER) Diet: Heart Healthy Addtl Attending Provider Instructions: You were admitted with a rapid irregular heartbeat called atrial fibrillation. You were started on a blood thinner to help prevent blood clots that can cause strokes from atrial fibrillation. You were started on new medication called diltiazem to help control your heart rate from getting too fast when you go into atrial fibrillation. You can stop taking amlodipine and lisinopril for now. Please follow-up with the rollway man and with your new PCP. You had a little bit of kidney injury from the diuretic given to take fluid off your lungs. Please have your kidney function rechecked by your PCP in 1 week. Here are some guidelines about taking Eliquis: Increased risk of blood clots if you stop taking Eliquis. Do not stop taking Eliquis without talking to your doctor.. Stopping Eliquis increases your risk of having a stroke. Increased risk of bleeding. Eliquis can cause bleeding which can be serious and may lead to . This is because Eliquis is a blood thinner medicine (anticoagulant) that lowers blood clotting. During treatment with Eliquis you are likely to bruise more easily, and it may take longer for bleeding to stop. * If you ever cannot get bleeding to stop please report to the ER * If you have a bruise that is large/painful or swollen you should also be seen by a medical provider Call your doctor or get medical help right away if you or your child develop any of these signs or symptoms of bleeding: unexpected bleeding or bleeding that lasts a long time, such as: * Nose bleeds that happen often * unusual bleeding from the gums * bleeding that is severe or you cannot control * red, pink or brown urine * bright red or black stools (looks like tar) * cough up blood or blood clots * vomit blood or your vomit looks like coffee grounds If you have a fall and hit your head, please come to the ER and get checked out. Being on a blood thinner increases your risk of brain bleeding with falls. Avoid high risk activities, such as: * standing on tall ladders * riding motorcycles * anything where you are high risk for falls or trauma Avoid taking NSAIDs (pain medication) while you are taking a blood thinner. This includes: * Ibuprofen, Aleve Advil, Naproxen. * If you are ever unsure you can ask your doctor or pharmacist. * Tylenol is SAFE to take. If you have any new or worsening chest pain or shortness of breath please return to the ER. Pending Studies at Discharge: No Stand-Alone Forms: My [facility] Medications and DC Order Prescriptions: New diltiazem HCl 120 mg capsule,extended release 24hr 120 mg PO QAM Qty: 30 0RF Eliquis 2.5 mg tablet 2.5 mg PO BID Qty: 60 0RF Continued atorvastatin 20 mg tablet 20 mg PO HS carvedilol 12.5 mg tablet 18.75 mg PO BID gabapentin 300 mg capsule 300 mg PO HS gabapentin 100 mg capsule 100 mg PO BID metformin 500 mg tablet extended release 24 hr 500 mg PO QAM multivitamin Tablet 1 tab PO DAILY vitamin B complex Tablet 1 tab PO DAILY aspirin 81 mg Tablet 81 mg PO DAILY Fish Oil Capsule 2,000 mg PO DAILY calcium citrate-vitamin D3 [Calcium Citrate + D] 315 mg-5 mcg (200 unit) Tablet 2 tab PO DAILY cholecalciferol (vitamin D3) [Vitamin D3] 25 mcg (1,000 unit) Tablet 25 mcg PO DAILY Held lisinopril 10 mg tablet 10 mg PO QAM Hold Instructions: Resume on 08/10/24. Hold until your kidney function is rechecked and your doctor tells you it's ok to resume Discontinued amlodipine 5 mg tablet 5 mg PO HS Discharge Orders: Discharge Order (Routine); Ordered 08/03/24 Ordered By: Gaby Gonzalez/Other Patient Handouts: High Blood Sugar (Hyperglycemia), Managing Type 2 Diabetes Admission Data Admit Date/Time: 08/02/24 13:28 Attending Provider: Gaby Long Admit Provider: Sal Velazco Primary Care Provider: PCP,NO Other Providers: Sal Velazco; Rivera Hood Hospital Stay Data Consultations 08/02/24 13:24 ED Decision to Admit Stat 08/03/24 10:15 Consult Cardiology Routine Diagnostic Imagining Performed 08/02/24 11:15 CT angio chest PE protocol Stat Echocardiogram Pending Results Patient Have Any Pending Studies at Discharge: No Discharge Instructions Given to Patient (Per Discharging Provider) You were admitted with a rapid irregular heartbeat called atrial fibrillation. You were started on a blood thinner to help prevent blood clots that can cause strokes from atrial fibrillation. You were started on new medication called diltiazem to help control your heart rate from getting too fast when you go into atrial fibrillation. You can stop taking amlodipine and lisinopril for now. Please follow-up with the rollway man and with your new PCP. You had a little bit of kidney injury from the diuretic given to take fluid off your lungs. Please have your kidney function rechecked by your PCP in 1 week. Here are some guidelines about taking Eliquis: Increased risk of blood clots if you stop taking Eliquis. Do not stop taking Eliquis without talking to your doctor.. Stopping Eliquis increases your risk of having a stroke. Increased risk of bleeding. Eliquis can cause bleeding which can be serious and may lead to . This is because Eliquis is a blood thinner medicine (anticoagulant) that lowers blood clotting. During treatment with Eliquis you are likely to bruise more easily, and it may take longer for bleeding to stop. * If you ever cannot get bleeding to stop please report to the ER * If you have a bruise that is large/painful or swollen you should also be seen by a medical provider Call your doctor or get medical help right away if you or your child develop any of these signs or symptoms of bleeding: unexpected bleeding or bleeding that lasts a long time, such as: * Nose bleeds that happen often * unusual bleeding from the gums * bleeding that is severe or you cannot control * red, pink or brown urine * bright red or black stools (looks like tar) * cough up blood or blood clots * vomit blood or your vomit looks like coffee grounds If you have a fall and hit your head, please come to the ER and get checked out. Being on a blood thinner increases your risk of brain bleeding with falls. Avoid high risk activities, such as: * standing on tall ladders * riding motorcycles * anything where you are high risk for falls or trauma Avoid taking NSAIDs (pain medication) while you are taking a blood thinner. This includes: * Ibuprofen, Aleve Advil, Naproxen. * If you are ever unsure you can ask your doctor or pharmacist. * Tylenol is SAFE to take. If you have any new or worsening chest pain or shortness of breath please return to the ER. Total Time Total Time Spent Total Time Spent (In Minutes): 35 minutes Total Time Includes: Examination of the Patient, Discharge Planning, Medication Reconciliation and Communication With Other Providers Coding Level of Care Code 03287 INP/OBS DISCH >30 MIN Diagnoses Paroxysmal atrial fibrillation I48.0 Primary hypertension I10 Hypertension type: primary hypertension Type 2 diabetes mellitus with diabetic neuropathy, without long-term current use of insulin E11.40 Diabetes mellitus intermediate insulin use: without oysterman use Diabetes mellitus complication status: with neurologic complications Diabetes mellitus complication detail: with unspecified neuropathy
[2024-08-03 17:16] VITALS: PULSE 66
[2024-08-03] MEDS: INFLUENZA VACC TS2024-25(65y+)/PF (IIV3) 0.5mL Syr IM ONE (17:54)
[2024-08-03] MEDS ORDERED: GABAPENTIN 100 MG CAP PO SCH (21:00)
--- NOTE | 2024-08-05 05:29 | Electrocardiogram Report ---
Test Reason : Blood Pressure : */* mmHG Vent. Rate : 110 BPM Atrial Rate : * BPM P-R Int : * ms QRS Dur : 72 ms QT Int : 330 ms P-R-T Axes : * 20 249 degrees QTcB Int : 446 ms Atrial fibrillation with rapid ventricular response with premature ventricular or aberrantly conducte d complexes Low voltage QRS Cannot rule out Anterior infarct , age undetermined Nonspecific T wave abnormality Abnormal ECG No previous ECGs available Confirmed by Rivera Hood ([id number]) on 08/05/2024 5:28:42 AM Referred By: REFERRED SELF Confirmed By: Rivera Hood
== END 2024-08-03 17:54 | disposition home or self-care (01) | DRG 310 ==
LOC: ED 10:54 → EDINP 13:28 → SUATTDRO 13:28 → 2S 18:39

== ENCOUNTER 2024-08-04 19:43 | Inpatient (IN) ==
--- NOTE | 2024-08-04 21:10 | Emergency Department Note ---
Impression & Plan Urticaria, Atrial fibrillation with RVR, JOSE (acute kidney injury) ED Provider Note NAME: TALI BANKS AGE: 84 SEX: F : 1940 ARRIVES VIA: Walk-In INFORMANT: Patient, ED PROVIDER(S): Josiah Clarke DO CHIEF COMPLAINT: Allergic reaction HPI: The patient is an 84-year-old female who presented to the emergency department for allergic reaction. The patient has a history of aortic stenosis. She was also recently seen for paroxysmal atrial fibrillation. The patient started noticing rash over her torso as well as her legs over the last 24 hours. The patient was started on Eliquis as well as diltiazem. She has been taking both medications. She has been on Eliquis in the past. The patient has never been on diltiazem as far she knows. The patient denies having any fever. She denies having any difficulty breathing or swelling in the oropharynx. She did not take any medications prior to coming to the emergency department. ROS: See above HPI for pertinent positives & negatives. A total of 10 systems reviewed and were otherwise negative. PAST MEDICAL HISTORY: See Below PAST SURGICAL HISTORY: See Below FAMILY HISTORY: See Below SOCIAL HISTORY: See Below HOME MEDICATIONS: See Below ALLERGIES: See Below VITALS: See Below PHYSICAL EXAMINATION: GENERAL: Patient is awake alert in no acute distress patient is resting comfortably and showing no signs of anxiety EYES: The conjunctivae are clear. The pupils are round and reactive. EARS, NOSE, MOUTH AND THROAT: The nose is without any evidence of any deformity. Mucous membranes are moist. Tongue is midline. NECK: The neck is nontender and supple. RESPIRATORY: Normal respiratory effort is noted there is no evidence of wheezing rhonchi or rales CARDIOVASCULAR: Regular rate and rhythm noted there no murmurs rubs or gallops normal S1 normal S2. GASTROINTESTINAL: The abdomen is soft. Abdomen is nontender. MUSCULOSKELETAL/EXTREMITIES: There is no evidence of gross deformity full range of motion is noted in the hips and shoulders. SKIN: Stock rash was noted over the torso as well as lower extremity. It does devang almost completely. There is no obvious petechia noted. NEUROLOGIC: Patient is awake alert and oriented x3 MEDICAL DECISION MAKING: The patient is an 84-year-old female who presented to the emergency department for an evaluation of a rash. The patient was started on oral anticoagulants as well as a calcium channel jamie recently. She is on other medications as well. She started having a rash this evening. She was recent discharge from her facility because of paroxysmal atrial fibrillation. I discussed the patient's laboratory results with her. She started having more tachycardia. I discussed the patient's condition with her and her family. Given her laboratory findings and her recent admission I do feel the patient would be a better candidate for inpatient management. For this reason I discussed the case with the on-call [facility] Hospitalist. Triage Nursing notes reviewed. Prior medical records reviewed Vital Signs: reviewed and remarkable for tachycardia. Differential diagnosis: Allergic reaction, anaphylaxis, urticaria, Nava-Amadeo syndrome, toxic epidermal necrolysis, erythema multiforme, contact dermatitis, cellulitis, as well as other pathologies. ER treatment provided: See below Diagnostics interpreted by me: ECG: EKG was obtained in the emergency department. My interpretation is atrial fibrillation at 110 bpm. There were no PVCs noted. Nonspecific ST segment abnormalities were noted. This was compared to a tracing from August 03, 2024. There is an increase in the rate otherwise no changes were noted. Cardiac Monitoring: An order was placed for continuous cardiac monitoring. The monitor shows a rate of 108 bpm with atrial fibrillation and RVR. Laboratory studies: As stated above and show below. Imaging studies: See below. Radiographic imaging was reviewed by myself Consultation(s): [facility] Cro[facility] the patient. 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 T2DM (type 2 diabetes mellitus) Peripheral neuropathy No pertinent family history HTN (hypertension) Surgical History History of total right knee replacement 2018 History of total hip arthroplasty For osteoarthritis 2015 History of carpal tunnel surgery 2016 History of reverse total replacement of left shoulder joint 2014 History of cataract surgery Bilateral (2007, 2010) History of section 1971, 1974 History of appendectomy 1960 History of tonsillectomy 1947 History of cholecystectomy 2015 Social History Smoking Status: Never smoker Do You Dip or Chew Tobacco: No; Hx Alcohol Use: No Hx Substance Use: No Preferred Language: Italian Communication Ability: Effective Rural Service Engineer Required: No Beliefs That Will Affect Care: None Current Living Situation: Spouse Feels Safe at Home: Yes Assistive Devices: None Allergies Allergies Allergy/AdvReac Type Severity Reaction Status Date / Time sulindac AdvReac Mild Gastrointestinal Verified 08/02/24 14:57 Upset Home Meds Home Medications Medication Instructions Recorded Confirmed aspirin 81 mg tablet 81 mg PO DAILY 08/02/24 08/02/24 atorvastatin 20 mg tablet 20 mg PO HS 08/02/24 08/02/24 calcium 315 mg (as 2 tab PO DAILY 08/02/24 08/02/24 citrate)-vitamin D3 5 mcg (200 unit) tablet (Calcium Citrate + D) carvedilol 12.5 mg tablet 18.75 mg PO BID 08/02/24 08/02/24 cholecalciferol (vitamin D3) 25 25 mcg PO DAILY 08/02/24 08/02/24 mcg (1,000 unit) tablet (Vitamin D3) gabapentin 100 mg capsule 100 mg PO BID 08/02/24 08/02/24 gabapentin 300 mg capsule 300 mg PO HS 08/02/24 08/02/24 lisinopril 10 mg tablet 10 mg PO QAM 08/02/24 08/02/24 metformin 500 mg tablet,extended 500 mg PO QAM 08/02/24 08/02/24 release 24 hr multivitamin 1 tab PO DAILY 08/02/24 08/02/24 omega-3 fatty acids 2,000 mg PO DAILY 08/02/24 08/02/24 vitamin B complex 1 tab PO DAILY 08/02/24 08/02/24 Previous Rx's Medication Instructions Recorded apixaban 2.5 mg tablet (Eliquis) 2.5 mg PO BID #60 tabs 08/03/24 diltiazem HCl 120 mg 120 mg PO QAM #30 caps 08/03/24 capsule,extended release 24 hr Results & Data (ED) Vital Signs Vital Signs - 24 hr 08/04/24 19:54 08/04/24 21:08 08/04/24 21:08 Temperature 36.8 C Temperature Source Temporal Artery Scan Pulse Rate 65 66 Pulse Rate [Right Finger] 66 Respiratory Rate 18 16 18 Respiratory Effort / Characteristics Non-Labored Non-Labored Spontaneous Respiratory Depth Normal Blood Pressure 130/53 L Blood Pressure [Right Arm] 109/52 L Blood Pressure Mean 78 Blood Pressure Mean [Right Arm] 71 Blood Pressure Position [Right Arm] Lying Pulse Oximetry 95 94 94 Oxygen Delivery Method Room Air Room Air Room Air Sepsis Recent Fever Within 48 Hours No Sepsis New/Unexplained Change in Mental Status No Sepsis Action Taken by Nursing No Action Required 08/04/24 21:42 08/04/24 23:00 Temperature Temperature Source Pulse Rate 66 Pulse Rate [Right Finger] 108 H Respiratory Rate 16 Respiratory Effort / Characteristics Non-Labored Respiratory Depth Blood Pressure Blood Pressure [Right Arm] 98/70 L Blood Pressure Mean Blood Pressure Mean [Right Arm] 79 Blood Pressure Position [Right Arm] Lying Pulse Oximetry 92 Oxygen Delivery Method Room Air Sepsis Recent Fever Within 48 Hours Sepsis New/Unexplained Change in Mental Status Sepsis Action Taken by Group Home Medications Current Medication List: was personally reviewed by me Laboratory Data Attestation: I reviewed the patient's lab results. 08/04/24 21:16 08/04/24 21:16 Lab Results 08/04/24 Range/Units 21:16 WBC 7.36 (4.8-10.8) K/ul RBC 3.93 L (4.20-5.40) M/uL Hgb 12.3 (12.0-16.0) g/dl Hct 36.4 L (37.0-47.0) % MCV 92.6 (80.0-100.0) fL MCH 31.3 (25.0-34.0) pg MCHC 33.8 (32.0-36.0) g/dL RDW Std Deviation 43.6 (36.4-46.3) fL RDW Coeff of Jennifer 12.8 (11.5-14.5) % Plt Count 159 (130-400) K/uL MPV 12.6 H (9.4-12.4) fL Immature Gran % (Auto) 0.3 % Neut % (Auto) 70.0 % Lymph % (Auto) 17.8 % [place] % (Auto) 9.2 % Eos % (Auto) 2.4 % Baso % (Auto) 0.3 % Neut # (Auto) 5.15 (1.40-6.50) K/uL Lymph # (Auto) 1.31 (1.20-3.40) K/uL [place] # (Auto) 0.68 H (0.11-0.59) K/uL Eos # (Auto) 0.18 (0.00-0.50) K/uL Baso # (Auto) 0.02 (0.00-0.20) K/uL Immature Gran # (Auto) 0.02 (0.01-0.20) K/uL PT 10.6 (9.0-12.0) Seconds INR 1.0 (0.9-1.1) APTT 25 (21-31) Seconds PTT Ratio 0.9 Sodium 132 L (136-145) mmol/L Potassium 4.3 (3.5-5.1) mmol/L Chloride 98 (98-107) mmol/L Carbon Dioxide 25 (21-32) mmol/L Anion Gap 9 (3-11) BUN 62 H D (6-23) mg/dl Creatinine 2.29 H D (0.6-1.2) mg/dl Est Cr Clr Drug Dosing 14.7 ml/min eGFR 20.43 BUN/Creatinine Ratio 27.1 H (10-20) Glucose 175 H (70-99(Fasting)) mg/dl Calcium 9.2 (8.6-10.3) mg/dl Total Bilirubin 0.6 (0.2-1.0) mg/dl AST 16 (13-39) U/L ALT 14 (7-52) U/L Alkaline Phosphatase 45 (34-104) U/L Troponin I High Sens 12.6 D (0-14) pg/ml Total Protein 6.9 (6.0-8.3) gm/dl Albumin 4.0 (3.4-5.0) gm/dl Globulin 2.9 (2.5-4.0) gm/dl Albumin/Globulin Ratio 1.4 (0.9-2) Administered Medications Discontinued Medications Dexamethasone Sodium Phosphate (DexamethasonePf 10 Mg/Ml Vial) 10 mg IV NOW ONE Stop: 08/04/24 21:07 Last Admin: 08/04/24 21:33 Dose: 10 mg Documented By: ODALYS Diphenhydramine HCl (Diphenhydramine 50 Mg/Ml Vial) 25 mg IV NOW STA Stop: 08/04/24 21:07 Last Admin: 08/04/24 21:34 Dose: 25 mg Documented By: ODALYS Famotidine (Pepcid 20mg Iv Push) 20 mg in 5 mls @ 2.5 mls/min IV NOW STA Stop: 08/04/24 21:07 Last Admin: 08/04/24 21:36 Dose: 2.5 mls/min Documented By: ODALYS Sodium Chloride (Nss) 250 mls @ 999 mls/hr IV .Q16M ONE Stop: 08/04/24 22:59 Last Admin: 08/04/24 23:39 Dose: Not Given Documented By: Discharge Plan Visit Data Chief Complaint: Rash Stated Complaint: RASH FROM HOSPITAL MED ED Provider: Josiah Clarke Discharge Problem: Urticaria, Atrial fibrillation with RVR, JOSE (acute kidney injury) Patient Disposition: Being Evaluated by Hospitalist Forms Stand Alone Forms: My [facility] Prescriptions Prescriptions: No Action atorvastatin 20 mg tablet 20 mg PO HS carvedilol 12.5 mg tablet 18.75 mg PO BID lisinopril 10 mg tablet 10 mg PO QAM Hold Instructions: Resume on 08/10/24. Hold until your kidney function is rechecked and your doctor tells you it's ok to resume gabapentin 300 mg capsule 300 mg PO HS gabapentin 100 mg capsule 100 mg PO BID metformin 500 mg tablet extended release 24 hr 500 mg PO QAM multivitamin Tablet 1 tab PO DAILY vitamin B complex Tablet 1 tab PO DAILY aspirin 81 mg Tablet 81 mg PO DAILY omega-3 fatty acids Capsule 2,000 mg PO DAILY calcium citrate-vitamin D3 [Calcium Citrate + D] 315 mg-5 mcg (200 unit) Tablet 2 tab PO DAILY cholecalciferol (vitamin D3) [Vitamin D3] 25 mcg (1,000 unit) Tablet 25 mcg PO DAILY diltiazem HCl 120 mg capsule,extended release 24hr 120 mg PO QAM Qty: 30 0RF Eliquis 2.5 mg tablet 2.5 mg PO BID Qty: 60 0RF Referrals Referrals: PCP,NO [Physician] -
[2024-08-04] MEDS: dexAMETHasone**PF** 10 MG/ML VIAL IV ONE (21:33)
[2024-08-04] MEDS: diphenhydrAMINE 50 MG/ML VIAL IV STA (21:34)
[2024-08-04] MEDS: FAMOTIDINE 20MG IV PUSH 20 MG/5 ML SYR IV STA (21:36)
[2024-08-04 21:47] LABS: Basophils # (auto) 0.02 K/uL (0.00-0.20); Basophils % (auto) 0.3 %; Eosinophils # (auto) 0.18 K/uL (0.00-0.50); Eosinophils % (auto) 2.4 %; Hematocrit (blood only) 36.4 % (37.0-47.0); Hemoglobin 12.3 g/dl (12.0-16.0); Immature Granulocytes # (auto) 0.02 K/uL (0.01-0.20); Immature Granulocytes % (auto) 0.3 %; Lymphocytes # (auto) 1.31 K/uL (1.20-3.40); Lymphocytes % (auto) 17.8 %; Mean Corpuscular Hemoglobin 31.3 pg (25.0-34.0); Mean Corpuscular Hgb Conc 33.8 g/dL (32.0-36.0); Mean Corpuscular Volume 92.6 fL (80.0-100.0); Mean Platelet Volume 12.6 fL (9.4-12.4); Monocytes # (auto) 0.68 K/uL (0.11-0.59); Monocytes % (auto) 9.2 %; Neutrophils # (auto) 5.15 K/uL (1.40-6.50); Platelet Count 159 K/uL (130-400); RDW Coefficient of Variation 12.8 % (11.5-14.5); RDW Standard Deviation 43.6 fL (36.4-46.3); Red Blood Count 3.93 M/uL (4.20-5.40); White Blood Count 7.36 K/ul (4.8-10.8)
[2024-08-04 22:04] LABS: Partial Thromboplastin Ratio 0.9; Partial Thromboplastin Time 25 Seconds (21-31); Prothrombin Time 10.6 Seconds (9.0-12.0)
[2024-08-04 22:08] LABS: Albumin Globulin Ratio 1.4 (0.9-2); BUN Creatinine Ratio 27.1 (10-20); Bilirubin,Total 0.6 mg/dl (0.2-1.0); Calcium 9.2 mg/dl (8.6-10.3); Creatinine Clr Calc Pharmacy 14.7 ml/min; Globulin 2.9 gm/dl (2.5-4.0); Potassium 4.3 mmol/L (3.5-5.1); Total Protein 6.9 gm/dl (6.0-8.3)
[2024-08-04 23:32] LABS: Troponin I High Sensitivity 12.6 pg/ml (0-14)
[2024-08-04] MEDS: SODIUM CHLORIDE 0.9% 250 ML IV ONE (23:39)
[2024-08-04] MEDS: SODIUM CHLORIDE 0.9% 500 ML IV ONE (23:45)
--- NOTE | 2024-08-04 23:49 | History & Physical Report ---
Date of Service August 04, 2024 Assessment & Plan (1) Allergic reaction to drug: (2) JOSE (acute kidney injury): (3) Urticaria: (4) Paroxysmal atrial fibrillation: (5) Atrial fibrillation with RVR: (6) History of pulmonary embolism: (7) HTN (hypertension): (8) Peripheral neuropathy: (9) T2DM (type 2 diabetes mellitus): Plan Drug rash/allergic reaction caused by drug- During last admission from 08/02-08/03/2024 patient received Lasix IV, was discharged on diltiazem CD, and was restarted on Eliquis which she had been on several years earlier. Her lisinopril had also been held. Her rash had improved significantly by the time I saw her, after receiving dexamethasone 10 mg IV, famotidine 20 mg IV, and Benadryl 25 mg IV. Most likely culprit would be Lasix with its sulfa base Follow closely for possible TEN/Nava-Amadeo syndrome Continue dexamethasone at 4 mg IV every 12 hours Benadryl 25 mg IV every 6 hours as needed Atrial fibrillation with RVR/PAF/hypertension- Continue apixaban, aspirin, carvedilol For now hold diltiazem, but it is unlikely the cause of the rash, but was one of the new drugs added If needed better rate control, would increase carvedilol Acute kidney injury- Creatinine 2.29, with base 1.20 Patient did receive a total of 750 mL of normal saline Encourage p.o. intake, recheck laboratories in a.m. Total CK added, is 50, with no signs of rhabdomyolysis Diabetes mellitus- Hold metformin Glucose 175 on admission Will likely increase on dexamethasone Placed on Accu-Cheks with NovoLog SSI History of Present Illness Chief Complaint: The patient is brought to the emergency department, with her and son, with concerns regarding an allergic reaction that caused a rash over her torso and legs worsening over the last 24 hours. Primary Care Provider: SAPNA Juarez The patient is an 84-year-old female with a past medical history including mitral regurgitation, aortic stenosis, paroxysmal atrial fibrillation, atrial fibrillation with RVR, hyperlipidemia, hypertension, vitamin D deficiency, peripheral neuropathy and diabetes mellitus. She was most recently admitted to [facility] from 08/02-08/03/2024 for atrial fibrillation with RVR and CHF. She presents to the emergency department with worsening rash over the past 24 hours over her torso and and legs, with symptoms primarily of itching Allergies Allergy/AdvReac Type Severity Reaction Status Date / Time sulindac AdvReac Mild Gastrointestinal Verified 08/02/24 14:57 Upset Home Medications Medication Instructions Recorded Confirmed Type aspirin 81 mg tablet 81 mg PO DAILY 08/02/24 08/02/24 History atorvastatin 20 mg tablet 20 mg PO HS 08/02/24 08/02/24 History calcium 315 mg (as 2 tab PO DAILY 08/02/24 08/02/24 History citrate)-vitamin D3 5 mcg (200 unit) tablet (Calcium Citrate + D) carvedilol 12.5 mg tablet 18.75 mg PO BID 08/02/24 08/02/24 History cholecalciferol (vitamin D3) 25 25 mcg PO DAILY 08/02/24 08/02/24 History mcg (1,000 unit) tablet (Vitamin D3) gabapentin 100 mg capsule 100 mg PO BID 08/02/24 08/02/24 History gabapentin 300 mg capsule 300 mg PO HS 08/02/24 08/02/24 History lisinopril 10 mg tablet 10 mg PO QAM 08/02/24 08/02/24 History metformin 500 mg tablet,extended 500 mg PO QAM 08/02/24 08/02/24 History release 24 hr multivitamin 1 tab PO DAILY 08/02/24 08/02/24 History omega-3 fatty acids 2,000 mg PO DAILY 08/02/24 08/02/24 History vitamin B complex 1 tab PO DAILY 08/02/24 08/02/24 History apixaban 2.5 mg tablet (Eliquis) 2.5 mg PO BID #60 tabs 08/03/24 Rx diltiazem HCl 120 mg 120 mg PO QAM #30 caps 08/03/24 Rx capsule,extended release 24 hr Past Med/Surg History Problem List (Updated 08/05/24 @ 05:09 by Cresencio Mckeon MD) HTN (hypertension) Peripheral neuropathy T2DM (type 2 diabetes mellitus) History of pulmonary embolism 2013 Allergic reaction to drug JOSE (acute kidney injury) (Acute) Urticaria (Acute) Chest pain Mitral regurgitation Aortic stenosis Paroxysmal atrial fibrillation Atrial fibrillation with RVR (Acute) Medical History History of pulmonary embolism 2013 History of pancreatitis Gallstone 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, Back December 2017 T2DM (type 2 diabetes mellitus) Peripheral neuropathy No pertinent family history HTN (hypertension) Surgical History History of total right knee replacement 2018 History of total hip arthroplasty For osteoarthritis 2015 History of carpal tunnel surgery 2016 History of reverse total replacement of left shoulder joint 2014 History of cataract surgery Bilateral (2007, 2010) History of section 1971, 1974 History of appendectomy 1960 History of tonsillectomy 1947 History of cholecystectomy 2015 Social History Smoking Status: Never smoker Do You Dip or Chew Tobacco: No; Hx Alcohol Use: No Hx Substance Use: No Preferred Language: Azeri Communication Ability: Effective Want Ad Clerk Required: No Beliefs That Will Affect Care: None Current Living Situation: Spouse Feels Safe at Home: Yes Assistive Devices: None Review of Systems Review of Systems: The patient denies chest pain, palpitations, shortness of breath, dyspnea on exertion, cough, lower extremity swelling, sore throat, fevers, chills, sweats, nausea, vomiting, diarrhea , constipation, abdominal pain, pelvic pain, blood in urine or stool, dysuria, urinary frequency or urgency, lightheadedness, dizziness, headache, memory loss, loss of consciousness, abnormal bruising or bleeding, imbalance, focal or generalized weakness, numbness or tingling in arms or legs, generalized arthralgias or myalgias, back or neck pain, or night sweats. The review of systems is otherwise negative other than for that already noted above, and at least 10 systems have been reviewed. Physical Exam Physical Exam: The patient is awake, alert and oriented 3, well developed and well nourished, normocephalic and atraumatic, lying in bed and in no acute distress. HEENT--PERRL, EOMI, mucous membranes and oropharynx dry. Neck--supple. No JVD. No bruits. Thyroid normal, trachea midline, no adenopathy. Heart--irregularly irregular and mildly tachycardic with rate 90s to 110s. No murmurs, rubs or gallops. Lungs--clear bilaterally, no respiratory distress, no accessory muscle use. Abdomen--normal bowel sounds and soft. Nontender. Nondistended, no hernias or masses, no organomegaly. Extremities--no cyanosis or clubbing. No edema. There are good distal pulses b/l. Dermatologic--improving rash previously described, with faint rash over legs and abdomen Neurologic--cranial nerves II through XII grossly intact. Rheumatologic--normal range of motion. Psychiatric--normal affect. Results & Data Results & Data Vital Signs (Past 12 Hours) Vital Signs Temp Pulse Pulse Resp BP BP Pulse Ox 08/04/24 23:00 108 H 16 98/70 L 92 08/04/24 21:42 66 08/04/24 21:08 66 18 94 08/04/24 21:08 66 16 109/52 L 94 08/04/24 19:54 36.8 C 65 18 130/53 L 95 O2 Del Method 08/04/24 23:00 Room Air 08/04/24 21:42 08/04/24 21:08 Room Air 08/04/24 21:08 Room Air 08/04/24 19:54 Room Air Laboratory Results Laboratory Results WBC 7.36 K/ul (4.8-10.8) 08/04/24 21:16 RBC 3.93 M/uL (4.20-5.40) L 08/04/24 21:16 Hgb 12.3 g/dl (12.0-16.0) 08/04/24 21:16 Hct 36.4 % (37.0-47.0) L 08/04/24 21:16 MCV 92.6 fL (80.0-100.0) 08/04/24 21:16 MCH 31.3 pg (25.0-34.0) 08/04/24 21:16 MCHC 33.8 g/dL (32.0-36.0) 08/04/24 21:16 RDW Std Deviation 43.6 fL (36.4-46.3) 08/04/24 21:16 RDW Coeff of Jennifer 12.8 % (11.5-14.5) 08/04/24 21:16 Plt Count 159 K/uL (130-400) 08/04/24 21:16 MPV 12.6 fL (9.4-12.4) H 08/04/24 21:16 Immature Gran % (Auto) 0.3 % 08/04/24 21:16 Neut % (Auto) 70.0 % 08/04/24 21:16 Lymph % (Auto) 17.8 % 08/04/24 21:16 [place] % (Auto) 9.2 % 08/04/24 21:16 Eos % (Auto) 2.4 % 08/04/24 21:16 Baso % (Auto) 0.3 % 08/04/24 21:16 Neut # (Auto) 5.15 K/uL (1.40-6.50) 08/04/24 21:16 Lymph # (Auto) 1.31 K/uL (1.20-3.40) 08/04/24 21:16 [place] # (Auto) 0.68 K/uL (0.11-0.59) H 08/04/24 21:16 Eos # (Auto) 0.18 K/uL (0.00-0.50) 08/04/24 21:16 Baso # (Auto) 0.02 K/uL (0.00-0.20) 08/04/24 21:16 Immature Gran # (Auto) 0.02 K/uL (0.01-0.20) 08/04/24 21:16 PT 10.6 Seconds (9.0-12.0) 08/04/24 21:16 INR 1.0 (0.9-1.1) 08/04/24 21:16 APTT 25 Seconds (21-31) 08/04/24 21:16 PTT Ratio 0.9 08/04/24 21:16 Sodium 132 mmol/L (136-145) L 08/04/24 21:16 Potassium 4.3 mmol/L (3.5-5.1) 08/04/24 21:16 Chloride 98 mmol/L (98-107) 08/04/24 21:16 Carbon Dioxide 25 mmol/L (21-32) 08/04/24 21:16 Anion Gap 9 (3-11) 08/04/24 21:16 BUN 62 mg/dl (6-23) H D 08/04/24 21:16 Creatinine 2.29 mg/dl (0.6-1.2) H D 08/04/24 21:16 Est Cr Clr Drug Dosing 14.7 ml/min 08/04/24 21:16 eGFR 20.43 08/04/24 21:16 BUN/Creatinine Ratio 27.1 (10-20) H 08/04/24 21:16 Glucose 175 mg/dl (70-99(Fasting)) H 08/04/24 21:16 Calcium 9.2 mg/dl (8.6-10.3) 08/04/24 21:16 Magnesium 2.1 mg/dl (1.7-2.4) 08/04/24 21:16 Total Bilirubin 0.6 mg/dl (0.2-1.0) 08/04/24 21:16 AST 16 U/L (13-39) 08/04/24 21:16 ALT 14 U/L (7-52) 08/04/24 21:16 Alkaline Phosphatase 45 U/L (34-104) 08/04/24 21:16 Total Creatine Kinase 50 U/L (26-192) 08/04/24 21:16 Troponin I High Sens 12.6 pg/ml (0-14) D 08/04/24 21:16 Total Protein 6.9 gm/dl (6.0-8.3) 08/04/24 21:16 Albumin 4.0 gm/dl (3.4-5.0) 08/04/24 21:16 Globulin 2.9 gm/dl (2.5-4.0) 08/04/24 21:16 Albumin/Globulin Ratio 1.4 (0.9-2) 08/04/24 21:16 Code Status & VTE Plan Code Status Full code VTE Prophylaxis Plan VTE Prophylaxis will be ordered: Yes PG Care Time/CCT Total # of Minutes Spent Total Time Spent with Patient: Total time spent is greater than 50% in coordination of care (as documented) at patient's floor/unit and/or counseling patient: Coding Level of Care Code 86350 INT INP/OBS CARE 3/75MIN Diagnoses Allergic reaction to drug T78.40XA JOSE (acute kidney injury) N17.9 Urticaria L50.9 Paroxysmal atrial fibrillation I48.0 Atrial fibrillation with RVR I48.91 History of pulmonary embolism Z86.711 Primary hypertension I10 Hypertension type: primary hypertension Peripheral neuropathy G62.9 Type 2 diabetes mellitus with diabetic neuropathy, without long-term current use of insulin E11.40 Diabetes mellitus halfway insulin use: without longitudinal float operator use Diabetes mellitus complication status: with neurologic complications Diabetes mellitus complication detail: with unspecified neuropathy (7) HTN (hypertension) Hypertension type: primary hypertension Qualified Code(s): I10 - Essential (primary) hypertension (9) T2DM (type 2 diabetes mellitus) Diabetes mellitus halfway insulin use: without longitudinal float operator use Diabetes mellitus complication status: with neurologic complications Diabetes mellitus complication detail: with unspecified neuropathy Qualified Code(s): E11.40 - Type 2 diabetes mellitus with diabetic neuropathy, unspecified
[2024-08-05 00:09] LABS: Magnesium 2.1 mg/dl (1.7-2.4)
[2024-08-05] MEDS ORDERED: GLUCOSE 10 TAB/TUBE PO PRN (02:06)
[2024-08-05] MEDS ORDERED: GLUCOSE 40% GEL 15 GM TUBE PO PRN (02:06)
[2024-08-05] MEDS ORDERED: ONDANSETRON INJ 2 MG/ML 2 ML VIAL IV PRN (02:06)
[2024-08-05] MEDS ORDERED: ACETAMINOPHEN 325 MG TAB PO PRN (02:06)
[2024-08-05] MEDS ORDERED: CARBOHYDRATES FOR HYPOGLYCEMIA PO PRN (02:06)
[2024-08-05] MEDS ORDERED: DEXTROSE 50% 50 ML SYRINGE IV PRN (02:06)
[2024-08-05] MEDS ORDERED: GLUCAGON FOR INJ 1 MG VIAL SQ PRN (02:06)
[2024-08-05 05:09] LABS: Eosinophils # (auto) 0.01 K/uL (0.00-0.50); Eosinophils % (auto) 0.2 %; Hematocrit (blood only) 34.5 % (37.0-47.0); Hemoglobin 11.6 g/dl (12.0-16.0); Immature Granulocytes # (auto) 0.01 K/uL (0.01-0.20); Immature Granulocytes % (auto) 0.2 %; Lymphocytes # (auto) 0.68 K/uL (1.20-3.40); Lymphocytes % (auto) 14.6 %; Mean Corpuscular Hemoglobin 31.1 pg (25.0-34.0); Mean Corpuscular Hgb Conc 33.6 g/dL (32.0-36.0); Mean Corpuscular Volume 92.5 fL (80.0-100.0); Mean Platelet Volume 12.6 fL (9.4-12.4); Monocytes # (auto) 0.06 K/uL (0.11-0.59); Monocytes % (auto) 1.3 %; Neutrophils # (auto) 3.91 K/uL (1.40-6.50); Neutrophils % (auto) 83.7 %; Platelet Count 157 K/uL (130-400); RDW Coefficient of Variation 12.9 % (11.5-14.5); RDW Standard Deviation 43.8 fL (36.4-46.3); Red Blood Count 3.73 M/uL (4.20-5.40); White Blood Count 4.67 K/ul (4.8-10.8)
[2024-08-05 05:32] LABS: Albumin Globulin Ratio 1.5 (0.9-2); Albumin Level 3.8 gm/dl (3.4-5.0); BUN Creatinine Ratio 28.8 (10-20); Bilirubin,Total 0.6 mg/dl (0.2-1.0); Creatinine Clr Calc Pharmacy 18.2 ml/min; Globulin 2.6 gm/dl (2.5-4.0); Magnesium 2.2 mg/dl (1.7-2.4); Potassium 5.2 mmol/L (3.5-5.1); Total Protein 6.4 gm/dl (6.0-8.3)
[2024-08-05 05:41] LABS: Partial Thromboplastin Ratio 0.9; Partial Thromboplastin Time 25 Seconds (21-31); Prothrombin Time 10.9 Seconds (9.0-12.0)
[2024-08-05] MEDS: carvediloL 6.25 MG TAB PO SCH (08:30)
[2024-08-05] MEDS: dexAMETHasone 4 MG in SYRINGE 0 ML IV SCH (08:30)
[2024-08-05] MEDS: GABAPENTIN 100 MG CAP PO SCH (08:31)
[2024-08-05] MEDS: APIXABAN 2.5 MG TAB PO SCH (10:33)
[2024-08-05] MEDS: INSULIN ASPART PER UNIT CHARGE SC SCH (10:37)
--- NOTE | 2024-08-05 11:50 | Cardiology Consultation ---
Date of Consultation August 05, 2024 Assessment & Plan (1) Paroxysmal atrial fibrillation: (2) Aortic stenosis: (3) Mitral regurgitation: (4) Chest pain: (5) HTN (hypertension): Plan ASSESSMENT/PLAN: 1. Paroxysmal atrial fibrillation: Symptomatic with recent hospitalization but seems to be asymptomatic currently. With mild hypotension and persistent tachycardia at rest, rate controlling strategy may be challenging. Recommend amiodarone 200 mg p.o. twice daily for now. More aggressive loading dose can be used however reasonable likelihood that she will spontaneously convert. We discussed potential adverse reactions/complications of amiodarone therapy and she is agreeable to begin therapy. In the past, chest discomfort seemed to correlate with A-fib with RVR. Can continue current dose of carvedilol for now but if she converts and is bradycardic, would reduce the dose. Recommend anticoagulation for stroke risk reduction in the form of Eliquis. Monitor renal function and CBC. 2. Aortic stenosis/regurgitation: Mild. We discussed echo findings earlier this week during her first hospital stay. Can monitor in the outpatient setting. 3. Mitral regurgitation: Moderate. Can monitor in the outpatient setting with surveillance echo. 4. Chest pain: Chest pain seemed to correlate with her atrial fibrillation earlier this week. Given that it was constant without resolution for several days, with normal high-sensitivity troponin x 2, chest pain is not consistent with ischemic heart disease. No chest pain this hospital stay. 5. Hypertension: History of hypertension but mildly hypotensive. Asymptomatic hypotension. Diltiazem has been discontinued. Lisinopril currently on hold due to acute renal insufficiency. 6. Acute kidney injury: As per primary hospitalist service. She received a dye load with CTA earlier this week and also intravenous diuretics, which resulted quickly and azotemic labs. She is not hypervolemic. Fortunately, renal function is improving with IV fluid hydration in the ER. 7. Rash: Etiology uncertain. Pruritus has improved. As per primary hospitalist service. 8. Disposition: Follow-up in the outpatient setting in the next 1 to 2 weeks. Patient care discussed with Dr. Long of the primary hospitalist service. Thank you for allowing me to participate in the care of your patient. Please call for any other questions or concerns. Sincerely, Cricket Hood M.D. History of Present Illness Reason for Consultation: atrial fibrillation Requesting Physician: Gaby Long MD Attending Physician: Gaby Long MD History of Present Illness Mrs. Jean is a very pleasant 84-year-old female with a history significant for paroxysmal atrial fibrillation, hypertension, type 2 diabetes, peripheral neuropathy, and bilateral lower extremity DVT with PE in 2013 after a long car ride. She was admitted on 08/02/2024 due to chest discomfort and was found to be in A- fib with RVR. Despite several days of constant chest discomfort, high- sensitivity troponin was negative x 2. She spontaneously converted to sinus rhythm on 08/03/2024. She was discharged on carvedilol which was a chronic medication for her and diltiazem [address] of her chronic amlo dipine. She returned to the ER and was admitted on 08/04/2024 due to rash. The rash involved most of her body. It was pruritic. She was given dexamethasone, famotidine, and Benadryl intravenously with improvement of her rash. While in the ER, she reverted to atrial fibrillation at 2155 on 08/04/2024. This particular time, she was asymptomatic. She denies chest pain, palpitations, shortness of breath, syncope, near syncope. She denies melena, hematochezia, or hematuria. Despite remaining in atrial fibrillation with rapid ventricular response, she feels well in that regard. She has had the following studies/procedures: 1. Echo 08/02/2024: Normal LV size, wall motion, systolic function. EF 60-65%. Mild LVH. Severe left atrial dilation. Mild aortic stenosis with mild AI. Moderate MR. Moderate MAC. Top normal RVSP. Review of systems: As above. Family history: Father had CHF. Sister with CHF. Social history: She denies tobacco, alcohol, or drug abuse. She is and lives with her , Gregg. They moved to the [facility] from [place] in 2023 to be closer to their son, Fransico. She has 2 sons and 7 grandchildren. Her other son lives in [place]. She was accompanied today by her son, Fransico. Allergies Allergy/AdvReac Type Severity Reaction Status Date / Time sulindac AdvReac Mild Gastrointestinal Verified 08/02/24 14:57 Upset Home Medications Medication Instructions Recorded Confirmed Type aspirin 81 mg tablet 81 mg PO DAILY 08/02/24 08/05/24 History atorvastatin 20 mg tablet 20 mg PO HS 08/02/24 08/05/24 History calcium 315 mg (as 2 tab PO DAILY 08/02/24 08/05/24 History citrate)-vitamin D3 5 mcg (200 unit) tablet (Calcium Citrate + D) carvedilol 12.5 mg tablet 18.75 mg PO BID 08/02/24 08/05/24 History cholecalciferol (vitamin D3) 25 25 mcg PO DAILY 08/02/24 08/05/24 History mcg (1,000 unit) tablet (Vitamin D3) gabapentin 100 mg capsule 100 mg PO BID 08/02/24 08/05/24 History gabapentin 300 mg capsule 300 mg PO HS 08/02/24 08/05/24 History lisinopril 10 mg tablet 10 mg PO QAM 08/02/24 08/05/24 History metformin 500 mg tablet,extended 500 mg PO QAM 08/02/24 08/05/24 History release 24 hr multivitamin 1 tab PO DAILY 08/02/24 08/05/24 History omega-3 fatty acids 2,000 mg PO DAILY 08/02/24 08/05/24 History vitamin B complex 1 tab PO DAILY 08/02/24 08/05/24 History apixaban 2.5 mg tablet (Eliquis) 2.5 mg PO BID #60 tabs 08/03/24 08/05/24 Rx diltiazem HCl 120 mg 120 mg PO QAM #30 caps 08/03/24 08/05/24 Rx capsule,extended release 24 hr Problem List (Updated 08/05/24 @ 05:09 by Cresencio Mckeon MD) HTN (hypertension) Peripheral neuropathy T2DM (type 2 diabetes mellitus) History of pulmonary embolism 2013 Allergic reaction to drug JOSE (acute kidney injury) (Acute) Urticaria (Acute) Chest pain Mitral regurgitation Aortic stenosis Paroxysmal atrial fibrillation Atrial fibrillation with RVR (Acute) Patient History Medical History History of pulmonary embolism 2013 History of pancreatitis Gallstone 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, Back December 2017 T2DM (type 2 diabetes mellitus) Peripheral neuropathy No pertinent family history HTN (hypertension) Surgical History History of total right knee replacement 2018 History of total hip arthroplasty For osteoarthritis 2015 History of carpal tunnel surgery 2016 History of reverse total replacement of left shoulder joint 2014 History of cataract surgery Bilateral (2008, 2011) History of section 1971, 1974 History of appendectomy 1960 History of tonsillectomy 1947 History of cholecystectomy 2016 Social History Smoking Status: Never smoker Second Hand Exposure: No; Do You Dip or Chew Tobacco: No; Hx Alcohol Use: No Hx Substance Use: No Preferred Language: Divehi Communication Ability: Effective [employer] Counter Clerk Required: No Beliefs That Will Affect Care: None Current Living Situation: Spouse Other Information That Helps Us Care for You: No Feels Safe at Home: Yes Safety Concerns: Feels Safe At This Time Assistive Devices: None Physical Exam Physical Exam: Gen.: No acute distress. Alert. HEENT: Anicteric sclera. Neck: No JVD. Bilateral bruits vs radiation of cardiac murmur. Normal carotid upstrokes bilaterally. Cardiac: Irregularly irregular and mildly tachycardic. Normal S1-S2. 2/6 early peaking systolic ejection murmur heard best at right upper sternal border. No rubs or gallops. Pulmonary: Clear to auscultation bilaterally without wheezes, rales, or rhonchi. Abdomen: Soft, nontender, nondistended, with normoactive bowel sounds. No bruits noted. Extremities: 2+ radial pulses bilaterally. 2+ posterior tibialis pulses bilaterally. No edema or cyanosis. Erythematous rash of bilateral lower extremities. Psychiatric: Affect appears appropriate. Results & Data Vital Signs (Past 12 Hours) Vital Signs Pulse Pulse Resp BP Pulse Ox O2 Del Method O2 Flow Rate 08/05/24 11:23 103 H 18 92/64 L 96 Room Air 08/05/24 07:20 115 H 08/05/24 06:00 117 H 20 100/39 L 95 Room Air 08/05/24 01:00 110 H 16 117/70 96 Nasal Cannula 2 Intake & Output 08/03/24 08/04/24 08/05/24 08/06/24 06:59 06:59 06:59 06:59 Intake Total 500 / 500 Balance 500 / 500 Weight 149 lb 11.102 oz 149 lb 11.102 oz Laboratory Results Laboratory Results - last 24 hr 08/04/24 08/05/2408/05/24 21:16 04:55 08:43 WBC 7.36 4.67 L RBC 3.93 L 3.73 L Hgb 12.3 11.6 L Hct 36.4 L 34.5 L MCV 92.6 92.5 MCH 31.3 31.1 MCHC 33.8 33.6 RDW Std Deviation 43.6 43.8 RDW Coeff of Jennifer 12.8 12.9 Plt Count 159 157 MPV 12.6 H 12.6 H Immature Gran % (Auto) 0.3 0.2 Neut % (Auto) 70.0 83.7 Lymph % (Auto) 17.8 14.6 [place] % (Auto) 9.2 1.3 Eos % (Auto) 2.4 0.2 Baso % (Auto) 0.3 0.0 Neut # (Auto) 5.15 3.91 Lymph # (Auto) 1.31 0.68 L [place] # (Auto) 0.68 H 0.06 L Eos # (Auto) 0.18 0.01 Baso # (Auto) 0.02 0.00 Immature Gran # (Auto) 0.02 0.01 PT 10.6 10.9 INR 1.0 1.0 APTT 25 25 PTT Ratio 0.9 0.9 Sodium 132 L 136 Potassium 4.3 5.2 H D Chloride 98 103 Carbon Dioxide 25 24 Anion Gap 9 9 BUN 62 H D 53 H Creatinine 2.29 H D 1.84 H D Est Cr Clr Drug Dosing 14.7 18.2 eGFR 20.43 26.56 BUN/Creatinine Ratio 27.1 H 28.8 H Glucose 175 H 256 H POC Glucose 236 H Calcium 9.2 9.0 Magnesium 2.1 2.2 Total Bilirubin 0.6 0.6 AST 16 15 ALT 14 15 Alkaline Phosphatase 45 37 Total Creatine Kinase 50 Troponin I High Sens 12.6 D Total Protein 6.9 6.4 Albumin 4.0 3.8 Globulin 2.9 2.6 Albumin/Globulin Ratio 1.4 1.5 Diagnostic Findings Labs reviewed and notable for abnormal but improving renal function since admission, mild hyperkalemia, hyperglycemia, normal transaminase levels, normal magnesium, mild leukopenia, mild anemia. Telemetry personally viewed: Initially sinus rhythm but then converted to atrial fibrillation with rapid ventricular response on 08/04/2024 at 2155. ECG personally reviewed 08/04/2024: A-fib with RVR 110 bpm. Nonspecific T wave abnormality. Poor R wave progression. History and physical report reviewed. Medications Administered Current Inpatient Medications Acetaminophen (Acetaminophen 325 Mg Tab) 650 mg PO Q4H PRN PRN Reason: Pain or Fever Stop: 09/04/24 02:05 Apixaban (Apixaban 2.5 Mg Tab) 2.5 mg PO BID YOANNA Stop: 09/04/24 08:59 Last Admin: 08/05/24 10:33 Dose: 2.5 mg Atorvastatin Calcium (Atorvastatin 20 Mg Tab) 20 mg PO HS YOANNA Stop: 09/04/24 20:59 Carvedilol (Carvedilol 6.25 Mg Tab) 18.75 mg PO BID YOANNA Stop: 09/04/24 08:59 Last Admin: 08/05/24 08:30 Dose: 18.75 mg Dextrose (Dextrose 50% 50 Ml Syringe) 25 - 50 ml IV UD PRN; Protocol PRN Reason: Hypoglycemia Protocol Stop: 09/04/24 02:05 Diphenhydramine HCl (Diphenhydramine 50 Mg/Ml Vial) 25 mg IV Q6H PRN PRN Reason: Allergic Symptoms Stop: 09/04/24 05:11 Gabapentin (Gabapentin 300 Mg Cap) 300 mg PO HS YOANNA Stop: 09/04/24 20:59 Gabapentin (Gabapentin 100 Mg Cap) 100 mg PO BID YOANNA Stop: 09/04/24 08:59 Last Admin: 08/05/24 08:31 Dose: 100 mg Glucagon (Glucagon For Inj 1 Mg Vial) 1 mg SQ UD PRN; Protocol PRN Reason: Hypoglycemia Protocol Stop: 09/04/24 02:05 Glucose (Glucose 40% Gel 15 Gm Tube) 15 - 30 gm PO UD PRN; Protocol PRN Reason: Hypoglycemia Protocol Stop: 09/04/24 02:05 Glucose (Glucose 10 Tab/Tube) 4 - 8 tab PO UD PRN; Protocol PRN Reason: Hypoglycemia Protocol Stop: 09/04/24 02:05 Dexamethasone 4 mg/ Syringe 1 mls @ 1 mls/min IV Q12H YOANNA Stop: 09/04/24 08:59 Last Admin: 08/05/24 08:30 Dose: 1 mls/min Insulin Aspart (Insulin Aspart Per Unit Charge) 0 units SC ACHS YOANNA Stop: 09/04/24 07:29 Last Admin: 08/05/24 10:37 Dose: 3 units Miscellaneous (Carbohydrates For Hypoglycemia ) 15 - 30 gm PO UD PRN PRN Reason: Hypoglycemia Protocol Stop: 09/04/24 02:05 Ondansetron HCl (Ondansetron Inj 2 Mg/Ml 2 Ml Vial) 4 mg IV Q6H PRN PRN Reason: Nausea Stop: 09/04/24 02:05 PG Care Time/CCT Total # of Minutes Spent Total Time Spent with Patient: Total time spent is greater than 50% in coordination of care (as documented) at patient's floor/unit and/or counseling patient: Coding Level of Care Code 00363 INT INP/OBS CARE 3/75MIN Diagnoses Paroxysmal atrial fibrillation I48.0 Aortic stenosis I35.0 Mitral regurgitation I34.0 Chest pain R07.9 Primary hypertension I10 Hypertension type: primary hypertension (5) HTN (hypertension) Hypertension type: primary hypertension Qualified Code(s): I10 - Essential (primary) hypertension
[2024-08-05] MEDS: AMIODARONE 200 MG TAB PO SCH (12:43)
[2024-08-05 15:16] LABS: BUN Creatinine Ratio 27.1 (10-20); Calcium 9.1 mg/dl (8.6-10.3); Potassium 4.8 mmol/L (3.5-5.1)
--- NOTE | 2024-08-05 15:59 | Hospitalist Progress Note ---
Date of Service August 05, 2024 Assessment & Plan (1) Allergic reaction to drug: Plan: During last admission from 08/02-08/03/2024 patient received Lasix IV, was discharged on diltiazem CD, and was restarted on Eliquis which she had been on several years earlier. Her lisinopril had also been held. She also received IV contrast 08/02. 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 With associated hyperkalemia-mild Holding lisinopril since last admission Improving - Creatinine 2.29 -> 1.77 - Patient did receive a total of 750 mL of normal saline in ED - Total CK added, is 50, with no signs of rhabdomyolysis - Encourage p.o. intake and continue to hold lisinopril (3) Paroxysmal atrial fibrillation: Plan: Atrial fibrillation with RVR recently diagnosed during previous admission 08/02- /PAF/hypertension - in A-fib on current admission, EKG showing A-fib with RVR, telemetry continues to show A-fib - discontinue diltiazem as one of the new drugs added that could be contributing to rash - cardiology consulted - Continue apixaban, aspirin, carvedilol - Can increase Eliquis to 5 mg when creatinine stable and less than 1.5 - addition of amiodarone 200 mg p.o. twice daily - TSH and liver enzymes within normal limits; to follow-up with PCP for routine rechecks - continue to monitor on telemetry (4) T2DM (type 2 diabetes mellitus): Plan: - Hold metformin - Glucose elevated - on dexamethasone - Placed on Accu-Cheks with NovoLog SSI - tightened glucose control with hyperglycemia - range from 100-160 -> 100-140 with elevated glucose, correction factor 50 -> 30 , Carb ratio 20 -> 15 - added Lantus 7 units every morning first dose given evening of 08/05 Plan Chronic stable diagnoses: History of PEcontinue Eliquis Peripheral neuropathycontinue gabapentin VTE ppx: Eliquis Diet: heart healthy, diabetes diet Code status: Full Dispo: PCU/telemetry; will return home when rash improves and better rate control Admission and Anticipated Discharge Date Admission Date: August 04, 2024 Supervising Physician Co-Signing Physician Notes Physician Enterprise Engineer Supervision note: I have not personally seen and examined the patient, but discussed and verified the rhodes points of the history and physical along with the plan with LUIS Hopkins with the following exceptions and/or additions: None Subjective Patient seen at bedside with son and present. All questions and concerns answered. No acute events overnight. Patient developed a rash all over her entire body yesterday morning. It seemed to get better last night after Benadryl was given but it has worsened today. As needed Benadryl dose ordered. She stated she did hold her lisinopril yesterday after discharge. She did take 1 dose of diltiazem at home but received multiple days of IV diltiazem on previous admission. She also had IV contrast on the . She denies feeling feverish, itchy, shortness of breath, chest pain, nausea, vomiting. Tele: Afib with occasional PVCs, HR 109. Review of Systems Review of Systems: See HPI Physical Exam Physical Exam: The patient is awake, alert and oriented 3, well developed and well nourished, normocephalic and atraumatic, in no acute distress. Non-toxic appearing. HEENT- EOMI, mucous membranes moist. Hearing grossly intact. Heart-normal S1 and S2. No murmurs, rubs or gallops. Lungs-clear bilaterally, no respiratory distress, no accessory muscle use. Abdomen-normal bowel sounds and soft. No ascites noted. Non-tender. Extremities- no clubbing, cyanosis, or edema. Diffuse erythematous rash all over her entire body, Blanchable, no blisters or skin peeling. Rheumatologic-normal range of motion. Psychiatric-normal affect. Results & Data Results & Data Vital Signs (Past 12 Hours) Vital Signs Pulse Pulse Resp BP Pulse Ox O2 Del Method 08/05/24 12:42 117 H 106/77 08/05/24 11:23 103 H 18 92/64 L 96 Room Air 08/05/24 07:20 115 H 08/05/24 06:00 117 H 20 100/39 L 95 Room Air Laboratory Results reviewed CBC, BMP PG Care Time/CCT Total # of Minutes Spent Total Time Spent with Patient: Total time spent is greater than 50% in coordination of care (as documented) at patient's floor/unit and/or counseling patient: Coding [place] [address] SUB INP/OBS CARE 3/50MIN Patient Type Established Medical Decision Making High Complexity Diagnoses Allergic reaction to drug T78.40XA JOSE (acute kidney injury) N17.9 Paroxysmal atrial fibrillation I48.0 Type 2 diabetes mellitus with diabetic neuropathy, without long-term current use of insulin E11.40 Diabetes mellitus complication detail: with unspecified neuropathy Diabetes mellitus complication status: with neurologic complications Diabetes mellitus skilled nursing insulin use: without skilled nursing use (4) T2DM (type 2 diabetes mellitus) Diabetes mellitus complication detail: with unspecified neuropathy Diabetes mellitus complication status: with neurologic complications Diabetes mellitus forest nursery worker insulin use: without skilled nursing use Qualified Code(s): E11.40 - Type 2 diabetes mellitus with diabetic neuropathy, unspecified
[2024-08-05] MEDS: diphenhydrAMINE 50 MG/ML VIAL IV PRN (16:34)
[2024-08-05] MEDS: LANTUS PER UNIT CHARGE SQ SCH (18:15)
[2024-08-05] MEDS: GABAPENTIN 300 MG CAP PO SCH (19:30)
[2024-08-05] MEDS: ATORVASTATIN 20 MG TAB PO SCH (19:30)
[2024-08-06 06:23] LABS: Basophils # (auto) 0.01 K/uL (0.00-0.20); Basophils % (auto) 0.1 %; Hemoglobin 10.5 g/dl (12.0-16.0); Immature Granulocytes # (auto) 0.05 K/uL (0.01-0.20); Immature Granulocytes % (auto) 0.5 %; Lymphocytes # (auto) 1.01 K/uL (1.20-3.40); Lymphocytes % (auto) 9.1 %; Mean Corpuscular Hemoglobin 31.3 pg (25.0-34.0); Mean Corpuscular Hgb Conc 33.9 g/dL (32.0-36.0); Mean Corpuscular Volume 92.3 fL (80.0-100.0); Mean Platelet Volume 12.7 fL (9.4-12.4); Monocytes # (auto) 0.44 K/uL (0.11-0.59); Neutrophils % (auto) 86.3 %; Platelet Count 148 K/uL (130-400); RDW Coefficient of Variation 13.1 % (11.5-14.5); Red Blood Count 3.36 M/uL (4.20-5.40); White Blood Count 11.11 K/ul (4.8-10.8)
[2024-08-06 06:52] LABS: Albumin Globulin Ratio 1.5 (0.9-2); Albumin Level 3.6 gm/dl (3.4-5.0); BUN Creatinine Ratio 31.8 (10-20); Bilirubin,Total 0.4 mg/dl (0.2-1.0); Calcium 8.9 mg/dl (8.6-10.3); Creatinine Clr Calc Pharmacy 22.1 ml/min; Globulin 2.4 gm/dl (2.5-4.0); Magnesium 2.1 mg/dl (1.7-2.4); Potassium 4.5 mmol/L (3.5-5.1)
[2024-08-06] MEDS: LANTUS PER UNIT CHARGE SQ ONE ×2 (09:41→14:01)
--- NOTE | 2024-08-06 11:28 | Hospitalist Progress Note ---
Date of Service August 06, 2024 Assessment & Plan (1) Allergic reaction to drug: Plan: During last admission from 08/02-08/03/2024 patient received Lasix IV, was discharged on diltiazem CD, and was restarted on Eliquis which she had been on several years earlier. Her lisinopril had also been held. She also received IV contrast 08/02. 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 Mak in 2 weeks -tryptase level pending (2) JOSE (acute kidney injury): Plan: mild JOES with previous admission, worsened since then - perhaps from soft blood pressures versus rapid atrial fibrillation versus previous CT contrast? With associated hyperkalemia - mild; resolved Holding lisinopril since last admission Improving - Creatinine 2.29 -> 1.51 - Patient did receive a total of 750 mL of normal saline in ED - Total CK added, is 50, with no signs of rhabdomyolysis - Encourage p.o. intake and continue to hold lisinopril (3) Paroxysmal atrial fibrillation: Plan: Atrial fibrillation with RVR recently diagnosed during previous admission 08/02- /PAF/hypertension - in A-fib on current admission, EKG showing A-fib with RVR, telemetry continues to show A-fib - discontinue diltiazem as one of the new drugs added that could be contributing to rash - cardiology consulted - Continue apixaban, aspirin, carvedilol - Can increase Eliquis to 5 mg when creatinine stable and less than 1.5 - Increase amiodarone to 400 mg p.o. twice daily x 7 days (started 08/06) and then 200 mg daily. If asymptomatic can go home with A-fib and close cardiology follow-up. - TSH and liver enzymes within normal limits; to follow-up with PCP for routine rechecks - continue to monitor on telemetry (4) T2DM (type 2 diabetes mellitus): Plan: Hyperglycemic due to steroid use - Hold metformin - Placed on Accu-Cheks with NovoLog SSI - tightened glucose control with hyperglycemia - correction factor 50 -> 25 , Carb ratio 20 -> 12 - added Lantus 17 units every morning 08/06 - lowered steroid dose from 4mg to 2 mg Plan Chronic stable diagnoses: History of PE continue Eliquis Peripheral neuropathy continue gabapentin VTE ppx: Eliquis Diet: heart healthy, diabetes diet Code status: Full Dispo: PCU/telemetry; discharge in AM 08/06 Admission and Anticipated Discharge Date Admission Date: August 04, 2024 Supervising Physician Co-Signing Physician Notes Physician Bobbin Coil Winder Supervision note: I have not personally seen and examined the patient, but discussed and verified the rhodes points of the history and physical along with the plan with LUIS Hopkins with the following exceptions and/or additions: None Subjective Patient seen at bedside. Doing well with no acute events overnight. Her rash is greatly improving. She denies itchiness and shortness of breath. She is to be seen by allergy later this afternoon. Spoke with male impersonator, Dr. Hood. Increase amiodarone to 400 mg p.o. twice daily x 7 days and then 200 mg daily. If asymptomatic can go home with A- fib and close cardiology follow-up. Tele: A fib with rate 100-105 this AM. Physical Exam Physical Exam: The patient is awake, alert and oriented 3, well developed and well nourished, normocephalic and atraumatic, in no acute distress. Non-toxic appearing. HEENT- EOMI, mucous membranes moist. Hearing grossly intact. Heart-normal S1 and S2. No murmurs, rubs or gallops. Lungs-clear bilaterally, no respiratory distress, no accessory muscle use. Abdomen-normal bowel sounds and soft. No ascites noted. Non-tender. Extremities- no clubbing, cyanosis, or edema. Diffuse erythematous rash all over her entire body, Blanchable, no blisters or skin peeling. Greatly improved. Rheumatologic-normal range of motion. Psychiatric-normal affect. Results & Data Results & Data Vital Signs (Past 12 Hours) Vital Signs Temp Pulse Pulse Resp BP Pulse Ox O2 Del Method 08/06/24 07:45 36.7 C 111 H 18 117/65 96 Room Air 08/06/24 03:44 36.6 C 116 H 18 104/67 96 Room Air 08/05/24 23:30 120 H Laboratory Results Reviewed CBC, BMP, magnesium PG Care Time/CCT Total # of Minutes Spent Total Time Spent with Patient: Total time spent is greater than 50% in coordination of care (as documented) at patient's floor/unit and/or counseling patient: Coding Level of Care Code 39370 SUB INP/OBS CARE 2/35MIN Diagnoses Allergic reaction to drug T78.40XA JOSE (acute kidney injury) N17.9 Paroxysmal atrial fibrillation I48.0 Type 2 diabetes mellitus with diabetic neuropathy, without long-term current use of insulin E11.40 Diabetes mellitus complication detail: with unspecified neuropathy Diabetes mellitus complication status: with neurologic complications Diabetes mellitus care home insulin use: without care home use (4) T2DM (type 2 diabetes mellitus) Diabetes mellitus complication detail: with unspecified neuropathy Diabetes mellitus complication status: with neurologic complications Diabetes mellitus ferry terminal agent insulin use: without ferry terminal agent use Qualified Code(s): E11.40 - Type 2 diabetes mellitus with diabetic neuropathy, unspecified
--- NOTE | 2024-08-06 11:29 | Cardiology Progress Note ---
Date of Service August 06, 2024 Assessment & Plan (1) Paroxysmal atrial fibrillation: (2) Aortic stenosis: (3) Mitral regurgitation: (4) Chest pain: (5) HTN (hypertension): Plan ASSESSMENT/PLAN: 1. Paroxysmal atrial fibrillation: Symptomatic with recent hospitalization but seems to be asymptomatic currently. Had spontaneously converted earlier this week during initial hospitalization. With mild hypotension and persistent tachycardia at rest, rate controlling strategy may be challenging. [place] to be allergic to diltiazem. Will increase amiodarone to 400 mg twice daily for 7 more days and then 200 mg once daily. Amiodarone initiated on 08/05/2024. Can continue current dose of carvedilol for now but if she converts and is bradycardic, would reduce the dose. Recommend anticoagulation for stroke risk reduction in the form of Eliquis. Monitor renal function and CBC. 2. Aortic stenosis/regurgitation: Mild. We discussed echo findings earlier this week during her first hospital stay. Can monitor in the outpatient setting. 3. Mitral regurgitation: Moderate. Can monitor in the outpatient setting with surveillance echo. 4. Chest pain: Chest pain seemed to correlate with her atrial fibrillation earlier this week. Given that it was constant without resolution for several days, with normal high-sensitivity troponin x 2, chest pain is not consistent with ischemic heart disease. No chest pain this hospital stay. 5. Hypertension: Normotensive. Diltiazem has been discontinued, and allergy/immunology believes that diltiazem likely the cause of her allergic drug reaction. Lisinopril currently on hold due to acute renal insufficiency. 6. Acute kidney injury: As per primary hospitalist service. She received a dye load with CTA earlier this week and also intravenous diuretics, which resulted quickly and azotemic labs. She is not hypervolemic. Fortunately, renal function is improving with IV fluid hydration in the ER. 7. Anemia: Received IV fluids here. Monitor for bleeding, especially since anticoagulation therapy was recently initiated. As per primary hospitalist service. 8. Disposition: Follow-up in the outpatient setting in the next 1 to 2 weeks. Patient care discussed with Dr. Long and Karolyn Hopkins of the primary hospitalist service. Can be discharged home while in A-fib if her heart rate remains similar and remains asymptomatic Admission and Anticipated Discharge Date Admission Date: August 04, 2024 Subjective Patient was seen earlier this evening. Her rash has improved and she is feeling better overall. She denies palpitations, chest pain, shortness of breath, edema, or bleeding. She was unaccompanied. Physical Exam Physical Exam: Gen.: No acute distress. Alert. HEENT: Anicteric sclera. Neck: No JVD. Cardiac: Irregularly irregular and mildly tachycardic. Normal S1-S2. 2/6 early peaking systolic ejection murmur heard best at right upper sternal border. No rubs or gallops. Pulmonary: Clear to auscultation bilaterally without wheezes, rales, or rhonchi. Abdomen: Soft, nontender, nondistended, with normoactive bowel sounds. No bruits noted. Extremities: 2+ radial pulses bilaterally. 2+ posterior tibialis pulses bilaterally. No edema or cyanosis. Psychiatric: Affect appears appropriate. Results & Data Vital Signs (Past 12 Hours) Vital Signs Temp Pulse Pulse Resp BP Pulse Ox O2 Del Method 08/06/24 11:25 36.7 C 107 H 18 123/79 96 Room Air 08/06/24 07:45 36.7 C 111 H 18 117/65 96 Room Air 08/06/24 03:44 36.6 C 116 H 18 104/67 96 Room Air 08/05/24 23:30 120 H Intake & Output 08/04/24 08/05/24 08/06/24 08/07/24 06:59 06:59 06:59 06:59 Intake Total 500 / 500 270 / 270 Balance 500 / 500 270 / 270 Weight 149 lb 11.102 oz 147 lb 14.883 oz Laboratory Results Laboratory Results - last 24 hr 08/05/24 08/05/24 08/05/24 12:57 14:44 17:58 WBC RBC Hgb Hct MCV MCH MCHC RDW Std Deviation RDW Coeff of Jennifer Plt Count MPV Immature Gran % (Auto) Neut % (Auto) Lymph % (Auto) [place] % (Auto) Eos % (Auto) Baso % (Auto) Neut # (Auto) Lymph # (Auto) [place] # (Auto) Eos # (Auto) Baso # (Auto) Immature Gran # (Auto) Sodium 135 L Potassium 4.8 Chloride 103 Carbon Dioxide 21 Anion Gap 11 BUN 48 H Creatinine 1.77 H Est Cr Clr Drug Dosing 19.0 eGFR 27.82 BUN/Creatinine Ratio 27.1 H Glucose 298 H POC Glucose 290 H 260 H Calcium 9.1 Magnesium Total Bilirubin AST ALT Alkaline Phosphatase Total Protein Albumin Globulin Albumin/Globulin Ratio Tryptase 08/05/24 08/06/24 08/06/24 20:21 05:25 07:43 WBC 11.11 H RBC 3.36 L Hgb 10.5 L Hct 31.0 L MCV 92.3 MCH 31.3 MCHC 33.9 RDW Std Deviation 43.0 RDW Coeff of Jennifer 13.1 Plt Count 148 MPV 12.7 H Immature Gran % (Auto) 0.5 Neut % (Auto) 86.3 Lymph % (Auto) 9.1 [place] % (Auto) 4.0 Eos % (Auto) 0.0 Baso % (Auto) 0.1 Neut # (Auto) 9.60 H Lymph # (Auto) 1.01 L [place] # (Auto) 0.44 Eos # (Auto) 0.00 Baso # (Auto) 0.01 Immature Gran # (Auto) 0.05 Sodium 137 Potassium 4.5 Chloride 107 Carbon Dioxide 23 Anion Gap 7 BUN 48 H Creatinine 1.51 H Est Cr Clr Drug Dosing 22.1 eGFR 33.67 BUN/Creatinine Ratio 31.8 H Glucose 217 H POC Glucose 307 H* 221 H Calcium 8.9 Magnesium 2.1 Total Bilirubin 0.4 AST 22 ALT 23 Alkaline Phosphatase 32 L Total Protein 6.0 Albumin 3.6 Globulin 2.4 L Albumin/Globulin Ratio 1.5 Tryptase 08/06/24 08/06/24 09:21 11:24 WBC RBC Hgb Hct MCV MCH MCHC RDW Std Deviation RDW Coeff of Jennifer Plt Count MPV Immature Gran % (Auto) Neut % (Auto) Lymph % (Auto) [place] % (Auto) Eos % (Auto) Baso % (Auto) Neut # (Auto) Lymph # (Auto) [place] # (Auto) Eos # (Auto) Baso # (Auto) Immature Gran # (Auto) Sodium Potassium Chloride Carbon Dioxide Anion Gap BUN Creatinine Est Cr Clr Drug Dosing eGFR BUN/Creatinine Ratio Glucose POC Glucose 326 H* Calcium Magnesium Total Bilirubin AST ALT Alkaline Phosphatase Total Protein Albumin Globulin Albumin/Globulin Ratio Tryptase Pending Diagnostic Findings Labs reviewed and notable for improving renal function, normal potassium, mild leukocytosis, anemia with hemoglobin dropping from 12.3 on 08/04/24 to 10.5 today. Telemetry personally viewed: Atrial fibrillation with heart rate mostly 90s to 120. Allergy and immunology consultation report reviewed. Medications Administered Current Inpatient Medications Acetaminophen (Acetaminophen 325 Mg Tab) 650 mg PO Q4H PRN PRN Reason: Pain or Fever Stop: 09/04/24 02:05 Amiodarone HCl (Amiodarone 200 Mg Tab) 200 mg PO BIDM [facility] Stop: 09/04/24 12:14 Last Admin: 08/06/24 08:03 Dose: 200 mg Apixaban (Apixaban 2.5 Mg Tab) 2.5 mg PO BID [facility] Stop: 09/04/24 08:59 Last Admin: 08/06/24 08:03 Dose: 2.5 mg Atorvastatin Calcium (Atorvastatin 20 Mg Tab) 20 mg PO HS [facility] Stop: 09/04/24 20:59 Last Admin: 08/05/24 19:30 Dose: 20 mg Carvedilol (Carvedilol 6.25 Mg Tab) 18.75 mg PO BID [facility] Stop: 09/04/24 08:59 Last Admin: 08/06/24 08:03 Dose: 18.75 mg Dextrose (Dextrose 50% 50 Ml Syringe) 25 - 50 ml IV UD PRN; Protocol PRN Reason: Hypoglycemia Protocol Stop: 09/04/24 02:05 Diphenhydramine HCl (Diphenhydramine 50 Mg/Ml Vial) 25 mg IV Q6H PRN PRN Reason: Allergic Symptoms Stop: 09/04/24 05:11 Last Admin: 08/05/24 16:34 Dose: 25 mg Gabapentin (Gabapentin 300 Mg Cap) 300 mg PO HS [facility] Stop: 09/04/24 20:59 Last Admin: 08/05/24 19:30 Dose: 300 mg Gabapentin (Gabapentin 100 Mg Cap) 100 mg PO BID [facility] Stop: 09/04/24 08:59 Last Admin: 08/06/24 09:41 Dose: 100 mg Glucagon (Glucagon For Inj 1 Mg Vial) 1 mg SQ UD PRN; Protocol PRN Reason: Hypoglycemia Protocol Stop: 09/04/24 02:05 Glucose (Glucose 40% Gel 15 Gm Tube) 15 - 30 gm PO UD PRN; Protocol PRN Reason: Hypoglycemia Protocol Stop: 09/04/24 02:05 Glucose (Glucose 10 Tab/Tube) 4 - 8 tab PO UD PRN; Protocol PRN Reason: Hypoglycemia Protocol Stop: 09/04/24 02:05 Dexamethasone 4 mg/ Syringe 1 mls @ 1 mls/min IV Q12H [facility] Stop: 09/04/24 08:59 Last Admin: 08/06/24 08:02 Dose: 1 mls/min Insulin Aspart (Insulin Aspart Per Unit Charge) 0 units SC ACHS [facility] Stop: 09/04/24 07:29 Last Admin: 08/06/24 08:44 Dose: 6 units Insulin Glargine (Lantus Per Unit Charge) 15 units SQ QAM [facility] Stop: 09/06/24 08:59 Miscellaneous (Carbohydrates For Hypoglycemia ) 15 - 30 gm PO UD PRN PRN Reason: Hypoglycemia Protocol Stop: 09/04/24 02:05 Ondansetron HCl (Ondansetron Inj 2 Mg/Ml 2 Ml Vial) 4 mg IV Q6H PRN PRN Reason: Nausea Stop: 09/04/24 02:05 PG Care Time/CCT Total # of Minutes Spent Total Time Spent with Patient: Total time spent is greater than 50% in coordination of care (as documented) at patient's floor/unit and/or counseling patient: Coding Level of Care Code 03965 SUB INP/OBS CARE 3/50MIN Diagnoses Paroxysmal atrial fibrillation I48.0 Aortic stenosis I35.0 Mitral regurgitation I34.0 Chest pain R07.9 Primary hypertension I10 Hypertension type: primary hypertension (5) HTN (hypertension) Hypertension type: primary hypertension Qualified Code(s): I10 - Essential (primary) hypertension
[2024-08-06] MEDS: AMIODARONE 200 MG TAB PO SCH (17:41)
--- NOTE | 2024-08-06 17:41 | Allergy & Immunology Consult ---
Date of Consultation August 06, 2024 Assessment & Plan (1) Allergic reaction to drug: Patient presents with a rash this seems to be most consistent with drug hypersensitivity. Based on the appearance of the rash, it is most compatible with a type Erasmo hypersensitivity, which usually T-cell mediated drug rashes that are driven by macrophage inflammation. In most cases, these types of rashes tend to be benign. The fact that her blood eosinophils are low is a good prognostic factor. There is a slight concern that a rash in combination with acute renal failure could represent AIN, but I think that the renal failure is most likely due to a combination contrast and a diuresis. The most likely culprit is diltiazem. The only thing unusual about this is that she was only on this medication for about 24 hours before the rash started and does not believe she was ever on it before. Without prior sensitization, I would have expected a greater delay before the rash began. For now, I recommend that she continue to avoid diltiazem. We can set up testing in the allergy clinic to determine whether this is a true allergy or not. If there were any need for a calcium channel jamie because of tachycardia, we could consider trying a different drug or even continuing with diltiazem, but treating through the rash with antihistamines and possibly prednisone. I would recommend trying to switch to cetirizine is an antihistamine as that should be nonsedating. She could use a dose of either 10 mg twice a day or even 20 mg twice a day for more antihistamine effect. I will set up a follow-up visit in my clinic in about 2 weeks Total time for today is 45 minutes which includes reviewing records prior to patient arrival, the [id number] visit, as well as time to record documentation after patient departure. History of Present Illness Attending Physician: Gaby Long MD History of Present Illness This is an 84-year-old female who presents with a rash. She was recently admitted to the hospital earlier this week because of A-fib and received medications including Lasix IV, diltiazem, Eliquis - which she had previously been on before and tolerated it. She also received IV contrast on 08/02. She was discharged 08/03 and she noticed a rash the day after the medicines were started. She presented to the emergency room on 08/04 because the rash was persisting and worsening. She described it as a red, itchy, flat rash, but was not severely itchy. She was admitted and started on steroids, Benadryl and the rash has been fading away. The diltiazem was stopped, but she has continued on Eliquis. Her blood work has not been remarkable for eosinophilia for other differential abnormality. A tryptase was ordered, but is pending. The only other abnormality was acute kidney injury, possibly related to IV contrast or dehydration from diuresis. Allergies Allergy/AdvReac Type Severity Reaction Status Date / Time sulindac AdvReac Mild Gastrointestinal Verified 08/02/24 14:57 Upset Home Medications Medication Instructions Recorded Confirmed Type aspirin 81 mg tablet 81 mg PO DAILY 08/02/24 08/05/24 History atorvastatin 20 mg tablet 20 mg PO HS 08/02/24 08/05/24 History calcium 315 mg (as 2 tab PO DAILY 08/02/24 08/05/24 History citrate)-vitamin D3 5 mcg (200 unit) tablet (Calcium Citrate + D) carvedilol 12.5 mg tablet 18.75 mg PO BID 08/02/24 08/05/24 History cholecalciferol (vitamin D3) 25 25 mcg PO DAILY 08/02/24 08/05/24 History mcg (1,000 unit) tablet (Vitamin D3) gabapentin 100 mg capsule 100 mg PO BID 08/02/24 08/05/24 History gabapentin 300 mg capsule 300 mg PO HS 08/02/24 08/05/24 History lisinopril 10 mg tablet 10 mg PO QAM 08/02/24 08/05/24 History metformin 500 mg tablet,extended 500 mg PO QAM 08/02/24 08/05/24 History release 24 hr multivitamin 1 tab PO DAILY 08/02/24 08/05/24 History omega-3 fatty acids 2,000 mg PO DAILY 08/02/24 08/05/24 History vitamin B complex 1 tab PO DAILY 08/02/24 08/05/24 History apixaban 2.5 mg tablet (Eliquis) 2.5 mg PO BID #60 tabs 08/03/24 08/05/24 Rx diltiazem HCl 120 mg 120 mg PO QAM #30 caps 08/03/24 08/05/24 Rx capsule,extended release 24 hr Patient History Medical History History of pulmonary embolism 2014 History of pancreatitis Gallstone 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, Back December 2017 T2DM (type 2 diabetes mellitus) Peripheral neuropathy No pertinent family history HTN (hypertension) Surgical History History of total right knee replacement 2018 History of total hip arthroplasty For osteoarthritis 2015 History of carpal tunnel surgery 2016 History of reverse total replacement of left shoulder joint 2014 History of cataract surgery Bilateral (2007, 2010) History of section 1971, 1974 History of appendectomy 1960 History of tonsillectomy 1947 History of cholecystectomy 2015 Social History Smoking Status: Never smoker Second Hand Exposure: No; Do You Dip or Chew Tobacco: No; Hx Alcohol Use: No Hx Substance Use: No Preferred Language: Icelandic Communication Ability: Effective Machine Pecan Picker Required: No Beliefs That Will Affect Care: None Current Living Situation: Spouse Feels Safe at Home: Yes Assistive Devices: Cane and Walker Review of Systems Review of Systems: See HPI Physical Exam Eyes: no conjunctival abnormality, no scleral abnormality and sclerae not anicteric ENMT: Nose: no turbinate abnormality, no nasal mucous membrane abnormality, no septum abnormality and no nasal discharge Mouth: no lip abnormality and no oropharynx abnormality Throat: no postnasal drainage Neck: trachea midline, no thyromegaly Respiratory: normal respiratory effort; no respiratory distress Auscultation: no crackles, no rhonchi and no wheezes Cardiovascular: RRR, no murmur, no edema Gastrointestinal (Abdomen): Inspection/Auscultation: abdomen normal to i nspection and normal bowel sounds; abdomen not distended Musculoskeletal: Head/Neck/Chest: normocephalic; head normal to inspection Skin: + rash (Fine, macular rash, slightly braden thematous) Neurologic: awake Speech / Cognition: normal cognition Motor/Sensory: normal movement Psychiatric: A+Ox3, euthymic affect Results & Data Vital Signs (Past 12 Hours) Vital Signs Temp Pulse Resp BP Pulse Ox O2 Del Method 08/06/24 15:48 36.6 C 109 H 18 123/70 98 Room Air 08/06/24 11:25 36.7 C 107 H 18 123/79 96 Room Air 08/06/24 07:45 36.7 C 111 H 18 117/65 96 Room Air Coding Level of Care Code 63113 INT INP/OBS CARE MIN Diagnoses Allergic reaction to drug [id number]
[2024-08-06] MEDS: CETIRIZINE HCL 10 MG TABLET PO SCH (20:46)
[2024-08-06] MEDS: dexAMETHasone 2 MG in SYRINGE 0 ML IV SCH (20:46)
--- NOTE | 2024-08-06 22:39 | Electrocardiogram Report ---
Test Reason : Blood Pressure : */* mmHG Vent. Rate : 110 BPM Atrial Rate : * BPM P-R Int : * ms QRS Dur : 84 ms QT Int : 352 ms P-R-T Axes : * -14 -4 degrees QTcB Int : 476 ms Atrial fibrillation with rapid ventricular response Low voltage QRS Poor R wave progression, consider anterior FL vs. lead placement vs. LVH Abnormal ECG When compared with ECG of 03-Aug-2024 12:33, Atrial fibrillation has replaced Sinus rhythm Vent. rate has increased by 40 bpm Questionable change in initial forces of Lateral leads Nonspecific T wave abnormality, improved in Anterolateral leads Confirmed by Rivera Hood ([id number]) on 08/06/2024 10:39:17 PM Referred By: REFERRED SELF Confirmed By: Rivera Hood
--- NOTE | 2024-08-06 22:40 | Electrocardiogram Report ---
Test Reason : Blood Pressure : */* mmHG Vent. Rate : 105 BPM Atrial Rate : 92 BPM P-R Int : * ms QRS Dur : 76 ms QT Int : 336 ms P-R-T Axes : * -5 17 degrees QTcB Int : 444 ms Atrial fibrillation with rapid ventricular response Low voltage QRS Septal infarct (cited on or before 02-Aug-2024) Abnormal ECG When compared with ECG of 04-Aug-2024 22:50, Questionable change in initial forces of Anterior leads Confirmed by Rivera Hood ([id number] on 08/06/2024 10:39:48 PM Referred By: REFERRED SELF Confirmed By: Rivera Hood
[2024-08-07 08:19] VITALS: BP 106/61; RESP 20; TEMP 98.2; O2SAT 96
[2024-08-07 08:31] LABS: Basophils # (auto) 0.01 K/uL (0.00-0.20); Basophils % (auto) 0.1 %; Hematocrit (blood only) 31.4 % (37.0-47.0); Hemoglobin 10.7 g/dl (12.0-16.0); Immature Granulocytes # (auto) 0.07 K/uL (0.01-0.20); Immature Granulocytes % (auto) 0.7 %; Lymphocytes # (auto) 0.94 K/uL (1.20-3.40); Lymphocytes % (auto) 8.9 %; Mean Corpuscular Hemoglobin 31.2 pg (25.0-34.0); Mean Corpuscular Hgb Conc 34.1 g/dL (32.0-36.0); Mean Corpuscular Volume 91.5 fL (80.0-100.0); Mean Platelet Volume 12.6 fL (9.4-12.4); Monocytes # (auto) 0.57 K/uL (0.11-0.59); Monocytes % (auto) 5.4 %; Neutrophils # (auto) 9.03 K/uL (1.40-6.50); Neutrophils % (auto) 84.9 %; Platelet Count 167 K/uL (130-400); RDW Coefficient of Variation 13.2 % (11.5-14.5); RDW Standard Deviation 43.4 fL (36.4-46.3); Red Blood Count 3.43 M/uL (4.20-5.40); White Blood Count 10.62 K/ul (4.8-10.8)
--- NOTE | 2024-08-07 08:40 | Discharge Summary ---
Discharge Summary Date of Service August 07, 2024 Principal Dx & Hospital Course #1 = Principal Diagnosis (1) Allergic reaction to drug: During last admission from 08/02-08/03/2024 patient received Lasix IV, was discharged on diltiazem CD, and was restarted on Eliquis which she had been on several years earlier. Her lisinopril had also been held. She also received IV contrast 08/02. - Received dexamethasone 10 mg IV, famotidine 20 mg IV, and Benadryl 25 mg IV in ER with improvement - Discussed with lumber mover and likely caused by diltiazem - Could be Lasix with its sulfa base or less likely Eliquis - Followed closely for possible TEN/Nava-Amadeo syndrome-none developed - Dexamethasone at 2 mg IV every 12 hours - lowered due to hyperglycemia 08/05; will stop steroids on discharge given rash greatly improved and hyperglycemia - Allergy consulted - Benadryl switched to cetirizine 10mg BID-continue x 2 weeks after discharge - follow-up with Dr. Mak in 2 weeks - tryptase level pending Rash resolved completely prior to discharge (2) JOSE (acute kidney injury): mild JOSE with previous admission, worsened since then - perhaps from soft blood pressures versus rapid atrial fibrillation versus previous CT contrast? With associated hyperkalemia - mild; resolved Holding lisinopril since last admission resolved - Creatinine 2.29 -> 1.51--> 1.31 - Patient did receive a total of 750 mL of normal saline in ED - Total CK added, is 50, with no signs of rhabdomyolysis - Encourage p.o. intake and continue to hold lisinopril until outpatient c ardiology follow-up - recommend repeat BMP in 1 week with PCP (3) Paroxysmal atrial fibrillation: Atrial fibrillation with RVR recently diagnosed during previous admission 08/02- /PAF/hypertension - in A-fib on current admission, EKG showing A-fib with RVR, telemetry continued to show A-fib - discontinued diltiazem as one of the new drugs added that could be contributing to rash - cardiology consulted - Continue apixaban, aspirin, carvedilol - Can increase Eliquis to 5 mg, Cr stable - Increase amiodarone to 400 mg p.o. twice daily x 7 days (started 08/06) and then 200 mg daily. If asymptomatic can go home with A-fib and close cardiology follow-up. - TSH and liver enzymes within normal limits; to follow-up with PCP for routine rechecks Heart rates in 80-90s at time of discharge--> Cardiology recommends that if converts to sinus and rates too low, can reduce dose of Coreg-discussed with pat ient at time of discharge (4) T2DM (type 2 diabetes mellitus): Hyperglycemic due to steroid use - Hold metformin during hospital stay - Placed on Accu-Cheks with NovoLog SSI - tightened glucose control with hyperglycemia - correction factor 25, Carb ratio 12 - added Lantus 17 units every morning - lowered steroid dose from 4mg to 2 mg 08/06 - can resume metformin on discharge; discontinue steroid use so hyperglycemia should resolve , no need for insulin at home Plan Chronic stable diagnoses: History of PE continue Eliquis Peripheral neuropathy continue gabapentin Tele: A fib with occasional PVCs, HR 90s - 110s VTE ppx: Eliquis Diet: heart healthy, diabetes diet Code status: Full Dispo: PCU/telemetry; discharge 08/06 with allergy and cardiology follow-up Notes For Next Care Provider Please repeat BMP in 1 week to ensure JOSE resolved Medication Changes From Visit Stop lisinopril and amlodipine (previous visit) Discontinue diltiazem 120 mg PO Amiodarone to 400 mg p.o. twice daily x 7 days (started 08/06) and then 200 mg daily Zyrtec 10 mg PO BID x 2 weeks Increase Eliquis to 5 mg PO BID now that government affairs fellow< 1.5 Admission HPI Per Admitting Provider The patient is an 84-year-old female with a past medical history including mitral regurgitation, aortic stenosis, paroxysmal atrial fibrillation, atrial fibrillation with RVR, hyperlipidemia, hypertension, vitamin D deficiency, peripheral neuropathy and diabetes mellitus. She was most recently admitted to [facility] from 08/02-08/03/2024 for atrial fibrillation with RVR and CHF. She presents to the emergency department with worsening rash over the past 24 hours over her torso and and legs, with symptoms primarily of itching Admission Exam Per Admitting Provider The patient is awake, alert and oriented 3, well developed and well nourished, normocephalic and atraumatic, lying in bed and in no acute distress. HEENT--PERRL, EOMI, mucous membranes and oropharynx dry. Neck--supple. No JVD. No bruits. Thyroid normal, trachea midline, no adenopathy. Heart--irregularly irregular and mildly tachycardic with rate 90s to 110s. No murmurs, rubs or gallops. Lungs--clear bilaterally, no respiratory distress, no accessory muscle use. Abdomen--normal bowel sounds and soft. Nontender. Nondistended, no hernias or masses, no organomegaly. Extremities--no cyanosis or clubbing. No edema. There are good distal pulses b/l. Dermatologic--improving rash previously described, with faint rash over legs and abdomen Neurologic--cranial nerves II through XII grossly intact. Rheumatologic--normal range of motion. Psychiatric--normal affect. Discharge Exam The patient is awake, alert and oriented 3, well developed and well nourished, normocephalic and atraumatic, in no acute distress. Non-toxic appearing. HEENT- EOMI, mucous membranes moist. Hearing grossly intact. Heart-irreg irreg normal S1 and S2. No murmurs, rubs or gallops. Lungs-clear bilaterally, no respiratory distress, no accessory muscle use. Abdomen-normal bowel sounds and soft. No ascites noted. Non-tender. Extremities- no clubbing, cyanosis, or edema. Diffuse erythematous rash all over her entire body, Blanchable, no blisters or skin peeling. Greatly improved. Rheumatologic-normal range of motion. Psychiatric-normal affect. Discharge Plan Discharge Items Patient Disposition: Home - Self-Care Reason For Visit: JOSE, A-FIB WITH RVR, RASH Discharge Diagnosis: 1. Drug induced rash 2. A fib with RVR 3. Acute kidney injury; resolved Condition on Discharge: Good Activity: Resume your previous activity Non-emergency contact: Primary Care Provider, Specialist and Associate Professor Computer Science Call non-emergency contact if: you have any medication questions, your symptoms worsen and your temperature is above 101 Follow-up/Referrals: Rivera Hood MD [Physician] - (Follow up 08/20 ) Josselin Lugo CRNP [Primary Care Provider] - (Follow up 08/09) Mimi Mak MD [Physician] - (Follow up to be arranged by Supervisor Customer Records Division in 2 weeks ) Diet: Regular Addtl Attending Provider Instructions: You were hospitalized for atrial fibrillation with rapid ventricular rate and a rash. After discussing with the lumber mover, your rash was likely caused by diltiazem. You are to stop taking this and have been switched to a new medication called amiodarone. You will take 400 mg twice a day of amiodarone f or the next 7 days (until 08/13) in which you will then switch to 200 once a day in the morning. You already have a scheduled appointment to follow-up with Dr. Hood on 08/20. Please continue and go to this follow-up. You were started on a new medication called amiodarone for your irregular heart rhythm. This can sometimes cause imbalance with your thyroid. I recommend outpatient follow-up with your PCP with routine checks of thyroid levels. Thyroid levels were normal during admission. This can also cause irregularities with your liver. Your liver enzymes were normal during admission, again I recommend routine checking of liver enzymes. As for your rash, you were given multiple days of steroids in the hospital which seemed to elevate your glucose. Upon discharge we will stop the steroids. The lumber mover recommended that you take Zyrtec 10 mg twice a day for 2 weeks until you follow-up with him. He will call you to set up a follow-up appointment and do testing to see what exactly you are allergic to. You are also still recovering from your acute kidney injury from your previous admission. This has resolved, although still continue to stay well-hydrated. You were previously taking 2.5 mg of Eliquis due to the kidney injury. Because your kidney function is improved, I recommend that you take the standard recommendation of 5 mg twice a day of Eliquis. As discussed take 2 tablets twice a day of your previous prescription that you already have. When that runs out, I have sent a new prescription of 5 mg to your pharmacy that you can fiber picker. Your previous blood pressure medications of lisinopril and amlodipine have been discontinued. I recommend that you have repeat blood work known as a basic metabolic panel in 1 week with your primary care provider to confirm that your kidney function has remained normal. It is recommended that you follow up with your PCP after being discharged from the hospital. You already have an appointment scheduled for 08/09. The following is a list of your medication changes: - Discontinue lisinopril and amlodipine (previous visit) - discontinue diltiazem 120 mg PO - Amiodarone to 400 mg twice daily x 7 days (Until 08/13) and then switch to 200 mg daily - for atrial fibrillation - Zyrtec 10 mg twice daily - to help with rash - Eliquis 2.5 mg increased to 5 mg twice daily - blood thinner for atrial fibrillation Addtl Body Mechanic Apprentice Provider Instructions: Here are some guidelines about taking Eliquis: Increased risk of blood clots if you stop taking Eliquis. Do not stop taking Eliquis without talking to your doctor.. Stopping Eliquis increases your risk of having a stroke. Increased risk of bleeding. Eliquis can cause bleeding which can be serious and may lead to . This is because Eliquis is a blood thinner medicine (anticoagulant) that lowers blood clotting. During treatment with Eliquis you are likely to bruise more easily, and it may take longer for bleeding to stop. * If you ever cannot get bleeding to stop please report to the ER * If you have a bruise that is large/painful or swollen you should also be seen by a medical provider Call your doctor or get medical help right away if you or your child develop any of these signs or symptoms of bleeding: unexpected bleeding or bleeding that lasts a long time, such as: * Nose bleeds that happen often * unusual bleeding from the gums * bleeding that is severe or you cannot control * red, pink or brown urine * bright red or black stools (looks like tar) * cough up blood or blood clots * vomit blood or your vomit looks like coffee grounds If you have a fall and hit your head, please come to the ER and get checked out. Being on a blood thinner increases your risk of brain bleeding with falls. Avoid high risk activities, such as: * standing on tall ladders * riding motorcycles * anything where you are high risk for falls or trauma Avoid taking NSAIDs (pain medication) while you are taking a blood thinner. This includes: * Ibuprofen, Aleve Advil, Naproxen. * If you are ever unsure you can ask your doctor or pharmacist. * Tylenol is SAFE to take. If you have any new or worsening chest pain or shortness of breath please return to the ER. Pending Studies at Discharge: Yes Studies:: Tryptase Stand-Alone Forms: Workbooks, Smoking Cessation Medications and DC Order Prescriptions: New cetirizine 10 mg Tablet 10 mg PO BID Qty: 28 0RF amiodarone 200 mg Tablet 400 mg PO BIDM Qty: 51 0RF Rx Instructions: Take 400 mg BID x 7 days (Until 08/13), then 200 mg once daily Eliquis 5 mg tablet 5 mg PO BID Qty: 60 0RF Continued atorvastatin 20 mg tablet 20 mg PO HS carvedilol 12.5 mg tablet 18.75 mg PO BID gabapentin 300 mg capsule 300 mg PO HS gabapentin 100 mg capsule 100 mg PO BID metformin 500 mg tablet extended release 24 hr 500 mg PO QAM multivitamin Tablet 1 tab PO DAILY vitamin B complex Tablet 1 tab PO DAILY aspirin 81 mg Tablet 81 mg PO DAILY omega-3 fatty acids Capsule 2,000 mg PO DAILY calcium citrate-vitamin D3 [Calcium Citrate + D] 315 mg-5 mcg (200 unit) Tablet 2 tab PO DAILY cholecalciferol (vitamin D3) [Vitamin D3] 25 mcg (1,000 unit) Tablet 25 mcg PO DAILY Changed Eliquis 2.5 mg tablet 5 mg PO BID Qty: 60 0RF Discontinued lisinopril 10 mg tablet 10 mg PO QAM Hold Instructions: Resume on 08/10/24. Hold until your kidney function is rechecked and your doctor tells you it's ok to resume diltiazem HCl 120 mg capsule,extended release 24hr 120 mg PO QAM Qty: 30 0RF Discharge Orders: Discharge Order (Routine); Ordered 08/07/24 Ordered By: Gaby Gonzalez/Other Patient Handouts: AFib Admission Data Admit Date/Time: 08/04/24 23:49 Attending Provider: Gaby Long Admit Provider: Cresencio Mckeon Primary Care Provider: Josselin Lugo Other Providers: Cresencio Mckeon; Rivera Hood; Mimi Mak Hospital Stay Data Consultations 08/04/24 23:06 ED Decision to Admit Stat 08/05/24 08:01 Consult Cardiology Routine 08/06/24 08:27 Consult Allergy / Immunology Routine Pending Results Patient Have Any Pending Studies at Discharge: Yes Discharge Instructions Given to Patient (Per Discharging Provider) You were hospitalized for atrial fibrillation with rapid ventricular rate and a rash. After discussing with the lumber mover, your rash was likely caused by diltiazem. You are to stop taking this and have been switched to a new medication called amiodarone. You will take 400 mg twice a day of amiodarone for the next 7 days (until 08/13) in which you will then switch to 200 once a day in the morning. You already have a scheduled appointment to follow-up with Dr. Hood on 08/20. Please continue and go to this follow-up. You were started on a new medication called amiodarone for your irregular heart rhythm. This can sometimes cause imbalance with your thyroid. I recommend outpatient follow-up with your PCP with routine checks of thyroid levels. Thyroid levels were normal during admission. This can also cause irregularities with your liver. Your liver enzymes were normal during admission, again I recommend routine checking of liver enzymes. As for your rash, you were given multiple days of steroids in the hospital which seemed to elevate your glucose. Upon discharge we will stop the steroids. The lumber mover recommended that you take Zyrtec 10 mg twice a day for 2 weeks until you follow-up with him. He will call you to set up a follow-up appointment and do testing to see what exactly you are allergic to. You are also still recovering from your acute kidney injury from your previous admission. This has resolved, although still continue to stay well-hydrated. You were previously taking 2.5 mg of Eliquis due to the kidney injury. Because your kidney function is improved, I recommend that you take the standard recommendation of 5 mg twice a day of Eliquis. As discussed take 2 tablets twice a day of your previous prescription that you already have. When that runs out, I have sent a new prescription of 5 mg to your pharmacy that you can fiber picker. Your previous blood pressure medications of lisinopril and amlodipine have been discontinued. I recommend that you have repeat blood work known as a basic metabolic panel in 1 week with your primary care provider to confirm that your kidney function has remained normal. It is recommended that you follow up with your PCP after being discharged from the hospital. You already have an appointment scheduled for 08/09. The following is a list of your medication changes: - Discontinue lisinopril and amlodipine (previous visit) - discontinue diltiazem 120 mg PO - Amiodarone to 400 mg twice daily x 7 days (Until 11/1) and then switch to 200 mg daily - for atrial fibrillation - Zyrtec 10 mg twice daily - to help with rash - Eliquis 2.5 mg increased to 5 mg twice daily - blood thinner for atrial fibrillation Supervising Physician Co-Signing Physician Notes PA Supervision Note: I personally saw and examined the patient. I verified all rhodes points and agree with LUIS Hopkins with the following exceptions and/or additions: S-Pt feeling well, no rash or itching, no chest pressure. O- Vitals reviewed Gen: [AAOx3, NAD] HEENT: [anicteric sclerae, EOMI] CV: [irreg irreg, normal rate no mgr nl S1S2] Pulm: [CTAB no wcr] Ext: [no edema Skin: [no rashes, warm/dry] Neuro: [full strength throughout] CBC, BMP A/P-84 yo female here with Rapid AF, JOSE, drug rash. Much improved, on amiodarone, rates controlled, JOSE resolved, rash resolved on Zyrtec, needs outpt ALlergy f/u Total Time Total Time Spent Total Time Spent (In Minutes): 45 mins Total Time Includes: Examination of the Patient, Discharge Planning, Medication Reconciliation and Communication With Other Providers (Cardiology and Allergy ) Coding Level of Care Code 39116 INP/OBS DISCH >30 MIN Diagnoses Allergic reaction to drug T78.40XA JOSE (acute kidney injury) N17.9 Paroxysmal atrial fibrillation I48.0 Type 2 diabetes mellitus with diabetic neuropathy, without long-term current use of insulin E11.40 Diabetes mellitus complication detail: with unspecified neuropathy Diabetes mellitus complication status: with neurologic complications Diabetes mellitus manager pe insulin use: without manager pe use
[2024-08-07 08:48] LABS: BUN Creatinine Ratio 35.4 (10-20); Calcium 9.2 mg/dl (8.6-10.3); Creatinine Clr Calc Pharmacy 25.6 ml/min; Magnesium 2.2 mg/dl (1.7-2.4); Potassium 4.3 mmol/L (3.5-5.1)
[2024-08-07] MEDS ORDERED: LANTUS PER UNIT CHARGE SQ SCH (09:00)
[2024-08-07] MEDS: LANTUS PER UNIT CHARGE SQ SCH (09:25)
[2024-08-07 11:37] VITALS: PULSE 110
== END 2024-08-07 12:46 | disposition home or self-care (01) | DRG 607 ==
LOC: ED 19:43 → EDINP 23:49 → SUATTDRO 23:49 → 4W 08-05 02:07